=== PATIENT | male | born 1955 | race African-American/Black ===

== ENCOUNTER 2019-04-18 05:08 | Inpatient (IN) ==
[2019-04-18] MEDS: NOREPINEPHRINE 16 MG in SODIUM CHLORIDE 0.9% 234 ML IV PRN (07:30)
[2019-04-18] MEDS ORDERED: ACETAMINOPHEN 325 MG TABLET PO PRN (07:53)
[2019-04-18] MEDS ORDERED: ONDANSETRON 4 MG/2 ML VIAL IV PRN (07:53)
[2019-04-18] MEDS ORDERED: LACTULOSE 20 GM/30 ML UDCUP PO PRN ×2 (07:53→13:18)
[2019-04-18] MEDS ORDERED: MORPHINE 4 MG/1 ML VIAL IV PRN (07:53)
[2019-04-18] MEDS ORDERED: MEROPENEM 500 MG in SODIUM CHLORIDE 0.9% 100 ML IV SCH (09:00)
[2019-04-18] MEDS ORDERED: HEPARIN/NACL 0.9% 2 UNITS/ML 500 ML IV ONE (09:13)
[2019-04-18] MEDS ORDERED: LEVOFLOXACIN INJ 750 MG in PREMIX 1 EACH IV SCH ×2 (10:00→12:00)
[2019-04-18 10:48] LABS: Basophils % 0.2 % (0.0-0.8); Eosinophils # 0.1 10*3/uL (0.0-0.87); Eosinophils % 0.6 % (0.00-10.9); Hematocrit 37.2 VOL% (42.0-52.0); Hemoglobin 11.4 GM/DL (14.0-18.0); Immature Granulocytes % 0.4 %; Immature Granulocytes Absolute 0.05 #; Lymphocytes # 1.4 10*3/uL (1.4-4.0); Lymphocytes % 11.4 % (21.2-54.2); Mean Corpuscular HGB Conc 30.6 GM/DL (32-36); Mean Corpuscular Volume 89.6 FL (87-102); Mean Platelet Volume 9.3 FL (9.6-12.0); Monocytes % 11.9 % (1.7-12.7); Neutrophils % 75.5 % (38.7-73.9); Platelet Count 327 T/CUMM (130-400); Red Blood Count 4.15 MC/CUMM (3.8-5.5); Red Cell Distribution Width 12.9 % (9.3-17.3); White Blood Count 12.2 T/CUMM (4-12)
[2019-04-18 10:52] LABS: ABG Base Excess -6.4 MMOL/L (-2.5-2.5); ABG HCO3 19.2 MMOL/L (20-26); ABG Oxygen Saturation 96.1 % (95-100); ABG PCO2 54.7 MM HG (35-48); ABG PH 7.215 (7.35-7.45); ABG PO2 90.3 MM HG (80-95); ABG TCO2 20.2 MMOL/L (23-27); Allen Test Positive
[2019-04-18 11:08] LABS: Alanine Aminotransferase 23 U/L (16-61); Albumin 2.8 G/DL (3.4-5.0); Alkaline Phosphatase 121 U/L (45-117); Aspartate Amino Transferase 14 U/L (0-37); Bilirubin,Total < 0.39 MG/DL (0.2-1.0); Blood Urea Nitrogen 39 MG/DL (7-18); Calcium 8.3 MG/DL (8.5-10.1); Estimated Glom Filtration Rate 27 ML/MIN; Glucose 200 MG/DL (74-106); Osmolality,Calculated 276.7 MOS/KG (273-304); Troponin I < 0.015 NG/ML (0.00-0.045)
[2019-04-18 12:51] LABS: Apearance,Urine CLOUDY (Clear); Bilirubin,Urine Negative (Negative); Blood, Urine Small mg/dL (Negative); Glucose,Urine (UA) Negative (Negative); Hyaline Casts,Urine 10 /LPF (0-3); Ketones,Urine Negative (Negative); Mucus,Urine Occasional /LPF (Occasional); Nitrite,Urine Negative (Negative); Protein,Urine Negative; RBC,Urine 10 /HPF (0-4); Squamous Epithelial Cell,Urine Occasional /HPF (0-10); Urine Specific Gravity 1.016 (1.001-1.035); Urine Urobilinogen < 2.0 EU/DL (0.2-1.0); WBC,Urine 2 /HPF (0-6)
[2019-04-18 12:52] LABS: Urine Color Yellow (Yellow)
[2019-04-18] MEDS ORDERED: DEXTROSE 10% 250 ML BAG IV PRN (13:32)
[2019-04-18] MEDS ORDERED: GLUCAGON 1 MG VIAL IM PRN (13:32)
[2019-04-18] MEDS: ALBUTEROL/IPRATROPIUM 3 ML NEB RESP TX SCH ×2 (14:35→19:29)
[2019-04-18] MEDS: DOCUSATE SODIUM 100 MG CAPSULE PO SCH ×2 (14:41→21:34)
[2019-04-18] MEDS: PANTOPRAZOLE 40 MG TABLET PO SCH (14:41)
[2019-04-18] MEDS: SODIUM CHLORIDE 0.9% 1,000 ML IV SCH ×2 (15:00→18:00)
[2019-04-18] MEDS: INSULIN GLARGINE 100 UNIT/ML SUBCUT SCH (15:00)
[2019-04-18] MEDS: methylPREDNISolone SOD SUC 40 MG/1 ML VIAL IV SCH (15:01)
[2019-04-18] MEDS: MEROPENEM 500 MG in SODIUM CHLORIDE 0.9% 100 ML IV SCH ×2 (15:01→23:57)
[2019-04-18 15:34] LABS: ABG Base Excess -4.6 MMOL/L (-2.5-2.5); ABG HCO3 20.3 MMOL/L (20-26); ABG Oxygen Saturation 77.9 % (95-100); ABG PCO2 52.6 MM HG (35-48); ABG PH 7.252 (7.35-7.45); ABG PO2 46.4 MM HG (80-95); ABG TCO2 21.3 MMOL/L (23-27)
[2019-04-18] MEDS ORDERED: ENOXAPARIN 30 MG/0.3 ML SYRINGE SUBCUT SCH (21:00)
[2019-04-18] MEDS: INSULIN LISPRO 100 UNIT/ML SUBCUT SCH ×2 (21:30→21:33)
[2019-04-19] MEDS: ALBUTEROL/IPRATROPIUM 3 ML NEB RESP TX SCH ×4 (01:15→20:10)
[2019-04-19] MEDS: NOREPINEPHRINE 16 MG in SODIUM CHLORIDE 0.9% 234 ML IV PRN (02:30)
[2019-04-19] MEDS: methylPREDNISolone SOD SUC 40 MG/1 ML VIAL IV SCH ×2 (02:58→14:44)
[2019-04-19 04:21] LABS: Basophils % 0.1 % (0.0-0.8); Hematocrit 33.7 VOL% (42.0-52.0); Hemoglobin 10.2 GM/DL (14.0-18.0); Immature Granulocytes % 0.6 %; Immature Granulocytes Absolute 0.06 #; Lymphocytes # 0.6 10*3/uL (1.4-4.0); Lymphocytes % 5.7 % (21.2-54.2); Mean Corpuscular HGB Conc 30.3 GM/DL (32-36); Mean Corpuscular Volume 89.4 FL (87-102); Mean Platelet Volume 9.6 FL (9.6-12.0); Monocytes % 8.7 % (1.7-12.7); Neutrophils % 84.9 % (38.7-73.9); Platelet Count 314 T/CUMM (130-400); Red Blood Count 3.77 MC/CUMM (3.8-5.5); Red Cell Distribution Width 12.7 % (9.3-17.3); White Blood Count 10.7 T/CUMM (4-12)
[2019-04-19] MEDS: SODIUM CHLORIDE 0.9% 1,000 ML IV SCH ×3 (04:30→17:44)
[2019-04-19 04:52] LABS: Alanine Aminotransferase 19 U/L (16-61); Albumin 2.5 G/DL (3.4-5.0); Alkaline Phosphatase 106 U/L (45-117); Aspartate Amino Transferase 12 U/L (0-37); Bilirubin,Total < 0.39 MG/DL (0.2-1.0); Blood Urea Nitrogen 33 MG/DL (7-18); Calcium 8.2 MG/DL (8.5-10.1); Estimated Glom Filtration Rate 49 ML/MIN; Glucose 254 MG/DL (74-106); Osmolality,Calculated 288.8 MOS/KG (273-304); Total Protein 6.6 G/DL (6.4-8.3); Troponin I < 0.015 NG/ML (0.00-0.045)
[2019-04-19] MEDS ORDERED: SODIUM POLYSTYRENE SULFATE 15 GM/60 ML BOTTLE PO ONE (08:30)
[2019-04-19] MEDS: risperiDONE 1 MG TABLET PO SCH ×2 (08:35→21:07)
[2019-04-19] MEDS: DIVALPROEX 250 MG TABLET PO SCH ×2 (08:35→21:07)
[2019-04-19] MEDS: INSULIN LISPRO 100 UNIT/ML SUBCUT SCH ×5 (08:36→21:08)
[2019-04-19] MEDS: PANTOPRAZOLE 40 MG TABLET PO SCH (08:36)
[2019-04-19] MEDS: INSULIN GLARGINE 100 UNIT/ML SUBCUT SCH ×3 (08:36→21:08)
[2019-04-19] MEDS: DOCUSATE SODIUM 100 MG CAPSULE PO SCH ×2 (08:36→21:08)
[2019-04-19 09:04] LABS: ABG Base Excess -3.2 MMOL/L (-2.5-2.5); ABG HCO3 21.7 MMOL/L (20-26); ABG Oxygen Saturation 96.3 % (95-100); ABG PCO2 47.7 MM HG (35-48); ABG PH 7.301 (7.35-7.45); ABG PO2 82.7 MM HG (80-95); ABG TCO2 21.4 MMOL/L (23-27); Allen Test Positive
[2019-04-19] MEDS: MEROPENEM 500 MG in SODIUM CHLORIDE 0.9% 100 ML IV SCH ×2 (10:49→17:37)
[2019-04-19] MEDS ORDERED: GLUCAGON 1 MG VIAL IM PRN (11:00)
[2019-04-19] MEDS ORDERED: DEXTROSE 10% 250 ML BAG IV PRN (11:02)
[2019-04-19] MEDS: METOPROLOL TARTRATE 50 MG TABLET PO SCH ×2 (11:04→21:08)
[2019-04-19] MEDS ORDERED: DOCUSATE SODIUM 100 MG CAPSULE PO SCH (13:25)
[2019-04-19] MEDS: GABAPENTIN 400 MG CAPSULE PO SCH ×2 (14:43→21:07)
[2019-04-19] MEDS: ASPIRIN CHEW 81 MG TABLET PO SCH (14:43)
[2019-04-19] MEDS: CLOPIDOGREL 75 MG TABLET PO SCH (14:44)
[2019-04-19] MEDS ORDERED: ENOXAPARIN 40 MG/0.4 ML SYRINGE SUBCUT SCH (21:00)
[2019-04-19] MEDS: ENOXAPARIN 30 MG/0.3 ML SYRINGE SUBCUT SCH (21:08)
[2019-04-20] MEDS: methylPREDNISolone SOD SUC 40 MG/1 ML VIAL IV SCH ×2 (01:15→14:11)
[2019-04-20] MEDS: MEROPENEM 500 MG in SODIUM CHLORIDE 0.9% 100 ML IV SCH ×2 (01:15→10:04)
[2019-04-20] MEDS: SODIUM CHLORIDE 0.9% 1,000 ML IV SCH ×3 (01:15→20:10)
[2019-04-20] MEDS: ALBUTEROL/IPRATROPIUM 3 ML NEB RESP TX SCH ×4 (02:07→19:15)
[2019-04-20 06:15] LABS: Basophils % 0.1 % (0.0-0.8); Hematocrit 30.5 VOL% (42.0-52.0); Hemoglobin 9.2 GM/DL (14.0-18.0); Immature Granulocytes Absolute 0.11 #; Lymphocytes % 8.8 % (21.2-54.2); Mean Corpuscular HGB Conc 30.2 GM/DL (32-36); Mean Corpuscular Volume 89.4 FL (87-102); Mean Platelet Volume 9.7 FL (9.6-12.0); Monocytes % 9.7 % (1.7-12.7); Neutrophils % 80.4 % (38.7-73.9); Platelet Count 315 T/CUMM (130-400); Red Blood Count 3.41 MC/CUMM (3.8-5.5); White Blood Count 11.3 T/CUMM (4-12)
[2019-04-20 06:16] LABS: Calcium 8.5 MG/DL (8.5-10.1); Osmolality,Calculated 286.3 MOS/KG (273-304)
[2019-04-20] MEDS: INSULIN LISPRO 100 UNIT/ML SUBCUT SCH ×7 (07:58→21:01)
[2019-04-20] MEDS: PANTOPRAZOLE 40 MG TABLET PO SCH (08:57)
[2019-04-20] MEDS: DOCUSATE SODIUM 100 MG CAPSULE PO SCH ×2 (08:58→20:10)
[2019-04-20] MEDS: ASPIRIN CHEW 81 MG TABLET PO SCH (08:58)
[2019-04-20] MEDS: METOPROLOL TARTRATE 50 MG TABLET PO SCH ×2 (08:59→20:10)
[2019-04-20] MEDS: CLOPIDOGREL 75 MG TABLET PO SCH (09:00)
[2019-04-20] MEDS: GABAPENTIN 400 MG CAPSULE PO SCH ×2 (09:03→20:09)
[2019-04-20] MEDS: risperiDONE 1 MG TABLET PO SCH ×2 (09:03→20:10)
[2019-04-20] MEDS: DIVALPROEX 250 MG TABLET PO SCH ×2 (09:06→20:10)
[2019-04-20] MEDS: INSULIN GLARGINE 100 UNIT/ML SUBCUT SCH ×2 (09:08→21:01)
[2019-04-20 09:47] LABS: Free T4 (Free Thyroxine) 0.86 NG/DL (0.76-1.46)
[2019-04-20] MEDS: ENOXAPARIN 30 MG/0.3 ML SYRINGE SUBCUT SCH (20:11)
[2019-04-20] MEDS ORDERED: SIMVASTATIN 10 MG TABLET PO SCH (21:00)
[2019-04-21] MEDS: SODIUM CHLORIDE 0.9% 1,000 ML IV SCH ×2 (01:11→09:21)
[2019-04-21] MEDS: methylPREDNISolone SOD SUC 40 MG/1 ML VIAL IV SCH (01:12)
[2019-04-21 05:18] LABS: Basophils % 0.2 % (0.0-0.8); Eosinophils # 0.1 10*3/uL (0.0-0.87); Eosinophils % 0.5 % (0.00-10.9); Hematocrit 32.6 VOL% (42.0-52.0); Hemoglobin 9.9 GM/DL (14.0-18.0); Immature Granulocytes % 2.3 %; Immature Granulocytes Absolute 0.24 #; Lymphocytes # 1.2 10*3/uL (1.4-4.0); Lymphocytes % 11.2 % (21.2-54.2); Mean Corpuscular HGB Conc 30.4 GM/DL (32-36); Mean Corpuscular Volume 88.3 FL (87-102); Mean Platelet Volume 9.4 FL (9.6-12.0); Monocytes % 5.3 % (1.7-12.7); Neutrophils % 80.5 % (38.7-73.9); Platelet Count 354 T/CUMM (130-400); Red Blood Count 3.69 MC/CUMM (3.8-5.5); White Blood Count 10.6 T/CUMM (4-12)
[2019-04-21 05:36] LABS: Calcium 8.3 MG/DL (8.5-10.1); Osmolality,Calculated 289.8 MOS/KG (273-304)
[2019-04-21] MEDS: ALBUTEROL/IPRATROPIUM 3 ML NEB RESP TX SCH ×3 (07:35→12:02)
[2019-04-21] MEDS: PANTOPRAZOLE 40 MG TABLET PO SCH (08:39)
[2019-04-21] MEDS: DOCUSATE SODIUM 100 MG CAPSULE PO SCH (08:40)
[2019-04-21] MEDS: INSULIN GLARGINE 100 UNIT/ML SUBCUT SCH (08:40)
[2019-04-21] MEDS: GABAPENTIN 400 MG CAPSULE PO SCH (08:40)
[2019-04-21] MEDS: METOPROLOL TARTRATE 50 MG TABLET PO SCH (08:40)
[2019-04-21] MEDS: risperiDONE 1 MG TABLET PO SCH (08:40)
[2019-04-21] MEDS: DIVALPROEX 250 MG TABLET PO SCH (08:40)
[2019-04-21] MEDS: ASPIRIN CHEW 81 MG TABLET PO SCH (08:40)
[2019-04-21] MEDS: CLOPIDOGREL 75 MG TABLET PO SCH (08:40)
[2019-04-21] MEDS: INSULIN LISPRO 100 UNIT/ML SUBCUT SCH ×2 (09:20)
[2019-04-21 12:54] VITALS: BP 143/76
== END 2019-04-21 14:38 | disposition home or self-care (01) | DRG 189 ==
LOC: N.ICU 06:42 → SUATTDRO 06:42 → N.5E 04-19 13:19
PROVIDERS: ADMIT Internal Medicine; ATTEND Internal Medicine

== ENCOUNTER 2019-05-06 14:04 | Inpatient (IN) ==
[2019-05-06] MEDS ORDERED: ALBUTEROL/IPRATROPIUM 3 ML NEB RESP TX STA (14:36)
[2019-05-06 15:11] LABS: Basophils % 0.5 % (0.0-0.8); Eosinophils # 0.1 10*3/uL (0.0-0.87); Eosinophils % 2.8 % (0.00-10.9); Hemoglobin 15.2 GM/DL (14.0-18.0); Immature Granulocytes % 0.5 %; Immature Granulocytes Absolute 0.02 #; Lymphocytes # 0.7 10*3/uL (1.4-4.0); Lymphocytes % 16.9 % (21.2-54.2); Mean Corpuscular Volume 87.5 FL (87-102); Mean Platelet Volume 8.9 FL (9.6-12.0); Monocytes % 7.2 % (1.7-12.7); Neutrophils % 72.1 % (38.7-73.9); Platelet Count 253 T/CUMM (130-400); Red Cell Distribution Width 13.4 % (9.3-17.3); White Blood Count 4.3 T/CUMM (4-12)
[2019-05-06 15:18] LABS: PT Patient Result 10.5 SECS (9.6-12.2); Partial Thromboplastin Time 26.8 SECS (20.8-36.0)
[2019-05-06 15:24] LABS: Apearance,Urine CLEAR (Clear); Bilirubin,Urine Negative (Negative); Blood, Urine Negative (Negative); Glucose,Urine (UA) Negative (Negative); Hyaline Casts,Urine 17 /LPF (0-3); Ketones,Urine Negative (Negative); Mucus,Urine Occasional /LPF (Occasional); Nitrite,Urine Negative (Negative); Protein,Urine Negative; Squamous Epithelial Cell,Urine Occasional /HPF (0-10); Urine Color Yellow (Yellow); Urine Specific Gravity 1.009 (1.001-1.035); Urine Urobilinogen < 2.0 EU/DL (0.2-1.0)
[2019-05-06 15:32] LABS: Barbiturates Screen,Urine Negative (Negative); Benzodiazepines Screen,Urine Negative (Negative); Cannabinoid Screen,Urine Negative (Negative); Opiate Screen,Urine Negative (Negative); Phencyclidine Screen,Urine Negative (Negative)
[2019-05-06 15:34] LABS: Alanine Aminotransferase 16 U/L (16-61); Albumin 2.8 G/DL (3.4-5.0); Alkaline Phosphatase 112 U/L (45-117); Aspartate Amino Transferase 8 U/L (0-37); Bilirubin,Total < 0.39 MG/DL (0.2-1.0); Blood Urea Nitrogen 31 MG/DL (7-18); Calcium 8.8 MG/DL (8.5-10.1); Estimated Glom Filtration Rate 61 ML/MIN; Glucose 75 MG/DL (74-106); Osmolality,Calculated 273.2 MOS/KG (273-304); Thyroid Stimulating Hormone 0.827 uIU/ml (0.358-3.74); Total Protein 7.1 G/DL (6.4-8.3); Troponin I < 0.015 NG/ML (0.00-0.045)
[2019-05-06 15:50] LABS: ABG Base Excess 3.8 MMOL/L (-2.5-2.5); ABG HCO3 27.8 MMOL/L (20-26); ABG Oxygen Saturation 96.7 % (95-100); ABG PCO2 54.8 MM HG (35-48); ABG PH 7.354 (7.35-7.45); ABG PO2 88.4 MM HG (80-95); ABG TCO2 27.7 MMOL/L (23-27)
[2019-05-06] MEDS ORDERED: ONDANSETRON 4 MG/2 ML VIAL IV PRN (17:10)
[2019-05-06] MEDS ORDERED: DOCUSATE SODIUM 100 MG CAPSULE PO PRN (17:10)
[2019-05-06] MEDS ORDERED: LACTULOSE 20 GM/30 ML UDCUP PO PRN (17:10)
[2019-05-06] MEDS ORDERED: GLUCAGON 1 MG VIAL IM PRN (17:16)
[2019-05-06] MEDS ORDERED: DEXTROSE 10% 250 ML BAG IV PRN (17:16)
[2019-05-06] MEDS ORDERED: SODIUM CHLORIDE 0.9% 1,000 ML IV SCH (17:30)
[2019-05-06] MEDS ORDERED: DEXTROSE 10% 250 ML BAG IV ONE (19:11)
[2019-05-06] MEDS ORDERED: DEXTROSE 50% 25 GM/50 ML SYRINGE IV ONE ×3 (19:14→19:30)
[2019-05-06 19:25] LABS: ABG HCO3 27.1 MMOL/L (20-26); ABG Oxygen Saturation 97.3 % (95-100); ABG PCO2 58.2 MM HG (35-48); ABG PH 7.325 (7.35-7.45); ABG PO2 98.3 MM HG (80-95); ABG TCO2 27.6 MMOL/L (23-27)
[2019-05-06] MEDS: ALBUTEROL/IPRATROPIUM 3 ML NEB RESP TX SCH (20:15)
[2019-05-06] MEDS: INSULIN LISPRO 100 UNIT/ML SUBCUT SCH (20:32)
[2019-05-06] MEDS ORDERED: METOPROLOL TARTRATE 50 MG TABLET PO SCH (21:00)
[2019-05-06] MEDS ORDERED: PRAVASTATIN 20 MG TABLET PO SCH (21:00)
[2019-05-06] MEDS: ENOXAPARIN 40 MG/0.4 ML SYRINGE SUBCUT SCH (21:28)
[2019-05-06] MEDS: DEXTROSE 5% NACL 0.9% 1,000 ML IV SCH (22:02)
[2019-05-07] MEDS: ALBUTEROL/IPRATROPIUM 3 ML NEB RESP TX SCH ×4 (00:50→20:25)
[2019-05-07] MEDS ORDERED: SODIUM CHLORIDE 0.9% 500 ML IV ONE (04:36)
[2019-05-07 06:19] LABS: Basophils % 0.5 % (0.0-0.8); Eosinophils # 0.2 10*3/uL (0.0-0.87); Eosinophils % 2.4 % (0.00-10.9); Hematocrit 33.2 VOL% (42.0-52.0); Hemoglobin 10.1 GM/DL (14.0-18.0); Immature Granulocytes % 0.3 %; Immature Granulocytes Absolute 0.02 #; Lymphocytes % 14.5 % (21.2-54.2); Mean Corpuscular HGB Conc 30.4 GM/DL (32-36); Mean Corpuscular Volume 89.2 FL (87-102); Mean Platelet Volume 9.1 FL (9.6-12.0); Monocytes % 10.1 % (1.7-12.7); Neutrophils % 72.2 % (38.7-73.9); Platelet Count 355 T/CUMM (130-400); Red Blood Count 3.72 MC/CUMM (3.8-5.5); Red Cell Distribution Width 13.3 % (9.3-17.3); White Blood Count 6.6 T/CUMM (4-12)
[2019-05-07 06:45] LABS: Albumin 2.5 G/DL (3.4-5.0); Bilirubin,Total 0.4 MG/DL (0.2-1.0); Calcium 8.4 MG/DL (8.5-10.1); Osmolality,Calculated 274.2 MOS/KG (273-304); Total Protein 6.3 G/DL (6.4-8.3)
[2019-05-07] MEDS: INSULIN LISPRO 100 UNIT/ML SUBCUT SCH ×4 (07:11→20:42)
[2019-05-07] MEDS: DEXTROSE 5% NACL 0.9% 1,000 ML IV SCH ×2 (07:35→18:31)
[2019-05-07 07:36] LABS: ABG Base Excess 3.4 MMOL/L (-2.5-2.5); ABG HCO3 27.4 MMOL/L (20-26); ABG PH 7.359 (7.35-7.45); ABG TCO2 27.3 MMOL/L (23-27); Allen Test Positive; Pt O2 Delivery Device BIPAP
[2019-05-07] MEDS ORDERED: GABAPENTIN 400 MG CAPSULE PO SCH (09:00)
[2019-05-07] MEDS: risperiDONE 1 MG TABLET PO SCH (11:55)
[2019-05-07] MEDS: SERTRALINE 50 MG TABLET PO SCH (12:15)
[2019-05-07] MEDS: ASPIRIN CHEW 81 MG TABLET PO SCH (12:16)
[2019-05-07] MEDS: CLOPIDOGREL 75 MG TABLET PO SCH (12:16)
[2019-05-07] MEDS: TOLTERODINE LA 4 MG CAPSULE PO SCH (12:16)
[2019-05-07] MEDS: PANTOPRAZOLE 40 MG TABLET PO SCH (12:16)
[2019-05-07] MEDS: DIVALPROEX 250 MG TABLET PO SCH ×2 (12:16→17:31)
[2019-05-07] MEDS: LACTULOSE 20 GM/30 ML UDCUP PO SCH ×3 (13:35→20:42)
[2019-05-07 15:36] LABS: ABG Base Excess 3.8 MMOL/L (-2.5-2.5); ABG HCO3 27.7 MMOL/L (20-26); ABG Oxygen Saturation 90.4 % (95-100); ABG PCO2 53.7 MM HG (35-48); ABG PH 7.359 (7.35-7.45); ABG PO2 58.9 MM HG (80-95); ABG TCO2 27.7 MMOL/L (23-27); Allen Test Positive; Pt O2 Delivery Device Other
[2019-05-07] MEDS ORDERED: GABAPENTIN 600 MG TABLET PO SCH (18:00)
[2019-05-07] MEDS: ENOXAPARIN 40 MG/0.4 ML SYRINGE SUBCUT SCH (20:41)
[2019-05-08] MEDS: ALBUTEROL/IPRATROPIUM 3 ML NEB RESP TX SCH ×4 (00:15→20:28)
[2019-05-08] MEDS: LACTULOSE 20 GM/30 ML UDCUP PO SCH ×4 (02:33→12:17)
[2019-05-08] MEDS: DEXTROSE 5% NACL 0.9% 1,000 ML IV SCH ×2 (04:07→15:36)
[2019-05-08 06:15] LABS: Basophils % 0.5 % (0.0-0.8); Eosinophils # 0.2 10*3/uL (0.0-0.87); Eosinophils % 2.1 % (0.00-10.9); Hematocrit 35.7 VOL% (42.0-52.0); Hemoglobin 10.6 GM/DL (14.0-18.0); Immature Granulocytes % 0.2 %; Immature Granulocytes Absolute 0.02 #; Lymphocytes # 0.9 10*3/uL (1.4-4.0); Lymphocytes % 10.6 % (21.2-54.2); Mean Corpuscular HGB Conc 29.7 GM/DL (32-36); Mean Corpuscular Volume 90.4 FL (87-102); Mean Platelet Volume 9.2 FL (9.6-12.0); Monocytes % 8.1 % (1.7-12.7); Neutrophils % 78.5 % (38.7-73.9); Platelet Count 373 T/CUMM (130-400); Red Blood Count 3.95 MC/CUMM (3.8-5.5); Red Cell Distribution Width 13.2 % (9.3-17.3); White Blood Count 8.2 T/CUMM (4-12)
[2019-05-08 06:32] LABS: Albumin 2.7 G/DL (3.4-5.0); Bilirubin,Total 0.7 MG/DL (0.2-1.0); Osmolality,Calculated 280.7 MOS/KG (273-304); Total Protein 7.2 G/DL (6.4-8.3)
[2019-05-08] MEDS: INSULIN LISPRO 100 UNIT/ML SUBCUT SCH ×4 (07:45→21:36)
[2019-05-08 11:09] LABS: ABG Base Excess 1.7 MMOL/L (-2.5-2.5); ABG HCO3 25.7 MMOL/L (20-26); ABG Oxygen Saturation 87.2 % (95-100); ABG PCO2 47.8 MM HG (35-48); ABG PH 7.368 (7.35-7.45); ABG PO2 54.1 MM HG (80-95); Allen Test Positive; Pt O2 Delivery Device Other
[2019-05-08] MEDS: ASPIRIN CHEW 81 MG TABLET PO SCH (13:39)
[2019-05-08] MEDS: PANTOPRAZOLE 40 MG TABLET PO SCH (13:40)
[2019-05-08] MEDS: SERTRALINE 50 MG TABLET PO SCH (13:40)
[2019-05-08] MEDS: CLOPIDOGREL 75 MG TABLET PO SCH (13:40)
[2019-05-08] MEDS: DIVALPROEX 250 MG TABLET PO SCH ×2 (13:40→17:09)
[2019-05-08] MEDS: TOLTERODINE LA 4 MG CAPSULE PO SCH (13:40)
[2019-05-08] MEDS: OXYMETAZOLINE 0.05% NASAL SPRAY 15 ML BOTTLE BOTH NARES PRN (15:23)
[2019-05-08] MEDS ORDERED: LINACLOTIDE 145 MCG CAPSULE PO SCH (15:25)
[2019-05-08] MEDS: SODIUM CHLOR 0.9% KCL 20 MEQ 20 MEQ/1,000 ML BAG IV SCH (15:29)
[2019-05-08] MEDS: METOCLOPRAMIDE 10 MG/2 ML VIAL IV SCH (17:09)
[2019-05-08] MEDS: LINACLOTIDE 145 MCG CAPSULE PO SCH (17:13)
[2019-05-08] MEDS: ENOXAPARIN 40 MG/0.4 ML SYRINGE SUBCUT SCH (21:33)
[2019-05-09] MEDS: ALBUTEROL/IPRATROPIUM 3 ML NEB RESP TX SCH ×4 (00:06→20:20)
[2019-05-09] MEDS: METOCLOPRAMIDE 10 MG/2 ML VIAL IV SCH ×4 (01:00→17:12)
[2019-05-09] MEDS: SODIUM CHLOR 0.9% KCL 20 MEQ 20 MEQ/1,000 ML BAG IV SCH ×2 (04:59→21:10)
[2019-05-09 05:30] LABS: Basophils % 0.4 % (0.0-0.8); Eosinophils # 0.3 10*3/uL (0.0-0.87); Eosinophils % 3.2 % (0.00-10.9); Hematocrit 33.5 VOL% (42.0-52.0); Immature Granulocytes % 0.2 %; Immature Granulocytes Absolute 0.02 #; Lymphocytes % 11.9 % (21.2-54.2); Mean Corpuscular HGB Conc 29.9 GM/DL (32-36); Mean Corpuscular Volume 89.8 FL (87-102); Mean Platelet Volume 9.1 FL (9.6-12.0); Monocytes % 8.3 % (1.7-12.7); Platelet Count 302 T/CUMM (130-400); Red Blood Count 3.73 MC/CUMM (3.8-5.5); Red Cell Distribution Width 13.2 % (9.3-17.3); White Blood Count 8.4 T/CUMM (4-12)
[2019-05-09 05:47] LABS: Albumin 2.7 G/DL (3.4-5.0); Bilirubin,Total 1.2 MG/DL (0.2-1.0); Calcium 8.7 MG/DL (8.5-10.1); Osmolality,Calculated 283.3 MOS/KG (273-304); Total Protein 6.6 G/DL (6.4-8.3)
[2019-05-09] MEDS ORDERED: LINACLOTIDE 145 MCG CAPSULE PO SCH (07:30)
[2019-05-09] MEDS: INSULIN LISPRO 100 UNIT/ML SUBCUT SCH ×4 (08:06→21:09)
[2019-05-09] MEDS: ASPIRIN CHEW 81 MG TABLET PO SCH (08:06)
[2019-05-09] MEDS: DIVALPROEX 250 MG TABLET PO SCH ×2 (08:06→17:12)
[2019-05-09] MEDS: CLOPIDOGREL 75 MG TABLET PO SCH (08:06)
[2019-05-09] MEDS: TOLTERODINE LA 4 MG CAPSULE PO SCH (08:06)
[2019-05-09] MEDS: PANTOPRAZOLE 40 MG TABLET PO SCH (08:07)
[2019-05-09] MEDS: SERTRALINE 50 MG TABLET PO SCH (08:07)
[2019-05-09] MEDS: LINACLOTIDE 145 MCG CAPSULE PO SCH (08:59)
[2019-05-09 12:10] LABS: Amorphous Crystals,Urine Few /HPF (Few); Apearance,Urine CLOUDY (Clear); Bilirubin,Urine Negative (Negative); Blood, Urine Negative (Negative); Glucose,Urine (UA) Negative (Negative); Ketones,Urine Negative (Negative); Mucus,Urine Occasional /LPF (Occasional); Nitrite,Urine Negative (Negative); Protein,Urine 30 MG/DL; RBC,Urine 5 /HPF (0-4); Triple Phosphate Crystal,Urine Occasional /HPF (Few); Urine Color Yellow (Yellow); Urine Specific Gravity 1.019 (1.001-1.035); Urine Urobilinogen < 2.0 EU/DL (0.2-1.0); WBC,Urine 25 /HPF (0-6)
[2019-05-09] MEDS: cefTRIAXone 1,000 MG in SYRINGE 1 EACH IV SCH (15:38)
[2019-05-09] MEDS: ENOXAPARIN 40 MG/0.4 ML SYRINGE SUBCUT SCH (21:09)
[2019-05-09] MEDS: FUROSEMIDE 20 MG TABLET PO SCH (21:10)
[2019-05-10] MEDS: METOCLOPRAMIDE 10 MG/2 ML VIAL IV SCH ×4 (00:30→17:17)
[2019-05-10] MEDS: OXYMETAZOLINE 0.05% NASAL SPRAY 15 ML BOTTLE BOTH NARES PRN (00:40)
[2019-05-10] MEDS ORDERED: COCAINE SUBSTITUTE 30 ML BOTTLE TOP ONE ×2 (00:58→01:00)
[2019-05-10] MEDS: ALBUTEROL/IPRATROPIUM 3 ML NEB RESP TX SCH ×4 (01:03→19:54)
[2019-05-10 04:58] LABS: Basophils % 0.2 % (0.0-0.8); Eosinophils # 0.1 10*3/uL (0.0-0.87); Hematocrit 31.9 VOL% (42.0-52.0); Hemoglobin 9.5 GM/DL (14.0-18.0); Immature Granulocytes % 0.3 %; Immature Granulocytes Absolute 0.04 #; Lymphocytes # 0.8 10*3/uL (1.4-4.0); Lymphocytes % 6.4 % (21.2-54.2); Mean Corpuscular HGB Conc 29.8 GM/DL (32-36); Mean Corpuscular Volume 90.4 FL (87-102); Neutrophils % 84.1 % (38.7-73.9); Platelet Count 294 T/CUMM (130-400); Red Blood Count 3.53 MC/CUMM (3.8-5.5); Red Cell Distribution Width 13.1 % (9.3-17.3); White Blood Count 12.1 T/CUMM (4-12)
[2019-05-10 05:19] LABS: Calcium 8.6 MG/DL (8.5-10.1); Osmolality,Calculated 283.5 MOS/KG (273-304)
[2019-05-10] MEDS: LINACLOTIDE 145 MCG CAPSULE PO SCH (08:22)
[2019-05-10] MEDS: ASPIRIN CHEW 81 MG TABLET PO SCH (08:24)
[2019-05-10] MEDS: CLOPIDOGREL 75 MG TABLET PO SCH (08:24)
[2019-05-10] MEDS: PANTOPRAZOLE 40 MG TABLET PO SCH (08:24)
[2019-05-10] MEDS: TOLTERODINE LA 4 MG CAPSULE PO SCH (08:24)
[2019-05-10] MEDS: CHLORTHALIDONE 25 MG TABLET PO SCH (08:24)
[2019-05-10] MEDS: DIVALPROEX 250 MG TABLET PO SCH ×2 (08:24→17:16)
[2019-05-10] MEDS: FUROSEMIDE 20 MG TABLET PO SCH ×2 (08:24→22:30)
[2019-05-10] MEDS: INSULIN LISPRO 100 UNIT/ML SUBCUT SCH ×4 (08:24→22:30)
[2019-05-10] MEDS: SERTRALINE 50 MG TABLET PO SCH (08:34)
[2019-05-10] MEDS: POTASSIUM CHLORIDE 20 MEQ TABLET PO PRN ×3 (11:44→15:58)
[2019-05-10] MEDS: SODIUM CHLOR 0.9% KCL 20 MEQ 20 MEQ/1,000 ML BAG IV SCH (11:54)
[2019-05-10] MEDS: cefTRIAXone 1,000 MG in SYRINGE 1 EACH IV SCH (15:59)
[2019-05-10] MEDS ORDERED: SIMETHICONE CHEW 125 MG TABLET PO PRN (17:26)
[2019-05-10] MEDS: ENOXAPARIN 40 MG/0.4 ML SYRINGE SUBCUT SCH (22:30)
[2019-05-11] MEDS: METOCLOPRAMIDE 10 MG/2 ML VIAL IV SCH ×5 (01:09→23:19)
[2019-05-11] MEDS ORDERED: INSULIN GLARGINE 100 UNIT/ML SUBCUT SCH (01:30)
[2019-05-11] MEDS: CLOZAPINE PO SCH ×2 (03:45→10:40)
[2019-05-11] MEDS: ALBUTEROL/IPRATROPIUM 3 ML NEB RESP TX SCH ×4 (04:48→19:21)
[2019-05-11 05:12] LABS: Basophils % 0.2 % (0.0-0.8); Eosinophils # 0.4 10*3/uL (0.0-0.87); Eosinophils % 3.7 % (0.00-10.9); Hematocrit 30.5 VOL% (42.0-52.0); Hemoglobin 9.5 GM/DL (14.0-18.0); Immature Granulocytes % 0.3 %; Immature Granulocytes Absolute 0.03 #; Lymphocytes # 0.9 10*3/uL (1.4-4.0); Lymphocytes % 9.7 % (21.2-54.2); Mean Corpuscular HGB Conc 31.1 GM/DL (32-36); Mean Corpuscular Volume 88.2 FL (87-102); Mean Platelet Volume 9.5 FL (9.6-12.0); Monocytes % 8.1 % (1.7-12.7); Platelet Count 289 T/CUMM (130-400); Red Blood Count 3.46 MC/CUMM (3.8-5.5); Red Cell Distribution Width 13.1 % (9.3-17.3); White Blood Count 9.4 T/CUMM (4-12)
[2019-05-11 05:30] LABS: Calcium 8.9 MG/DL (8.5-10.1); Osmolality,Calculated 281.4 MOS/KG (273-304)
[2019-05-11] MEDS: POTASSIUM CHLORIDE 20 MEQ TABLET PO PRN ×2 (06:51→13:07)
[2019-05-11] MEDS ORDERED: POTASSIUM CHLORIDE 20 MEQ TABLET PO ONE (07:35)
[2019-05-11] MEDS: INSULIN LISPRO 100 UNIT/ML SUBCUT SCH ×4 (10:36→23:21)
[2019-05-11] MEDS: DIVALPROEX 250 MG TABLET PO SCH ×2 (10:38→16:08)
[2019-05-11] MEDS: risperiDONE 1 MG TABLET PO SCH ×2 (10:38→16:08)
[2019-05-11] MEDS: TOLTERODINE LA 4 MG CAPSULE PO SCH (10:38)
[2019-05-11] MEDS: predniSONE 20 MG TABLET PO SCH (10:39)
[2019-05-11] MEDS: PANTOPRAZOLE 40 MG TABLET PO SCH (10:39)
[2019-05-11] MEDS: SERTRALINE 50 MG TABLET PO SCH (10:39)
[2019-05-11] MEDS: ASPIRIN CHEW 81 MG TABLET PO SCH (10:39)
[2019-05-11] MEDS: CLOPIDOGREL 75 MG TABLET PO SCH (10:39)
[2019-05-11] MEDS: THEOPHYLLINE ER (24 HR) 400 MG CAPSULE PO SCH (10:39)
[2019-05-11] MEDS: CHLORTHALIDONE 25 MG TABLET PO SCH (10:40)
[2019-05-11] MEDS: FUROSEMIDE 20 MG TABLET PO SCH ×2 (10:40→16:15)
[2019-05-11] MEDS: LINACLOTIDE 145 MCG CAPSULE PO SCH (12:57)
[2019-05-11] MEDS: cefTRIAXone 1,000 MG in SYRINGE 1 EACH IV SCH (16:08)
[2019-05-11] MEDS: INSULIN GLARGINE 100 UNIT/ML SUBCUT SCH (18:05)
[2019-05-11] MEDS: ENOXAPARIN 40 MG/0.4 ML SYRINGE SUBCUT SCH (23:22)
[2019-05-12] MEDS: ALBUTEROL/IPRATROPIUM 3 ML NEB RESP TX SCH ×4 (00:23→19:08)
[2019-05-12 04:34] LABS: Basophils % 0.2 % (0.0-0.8); Eosinophils # 0.4 10*3/uL (0.0-0.87); Eosinophils % 4.2 % (0.00-10.9); Hematocrit 32.1 VOL% (42.0-52.0); Hemoglobin 9.7 GM/DL (14.0-18.0); Immature Granulocytes % 0.4 %; Immature Granulocytes Absolute 0.03 #; Lymphocytes # 1.1 10*3/uL (1.4-4.0); Lymphocytes % 13.1 % (21.2-54.2); Mean Corpuscular HGB Conc 30.2 GM/DL (32-36); Mean Corpuscular Volume 89.2 FL (87-102); Mean Platelet Volume 9.4 FL (9.6-12.0); Monocytes % 9.5 % (1.7-12.7); Neutrophils % 72.6 % (38.7-73.9); Platelet Count 297 T/CUMM (130-400); Red Cell Distribution Width 12.8 % (9.3-17.3); White Blood Count 8.4 T/CUMM (4-12)
[2019-05-12 05:04] LABS: Osmolality,Calculated 279.7 MOS/KG (273-304)
[2019-05-12] MEDS: METOCLOPRAMIDE 10 MG/2 ML VIAL IV SCH ×4 (05:33→23:56)
[2019-05-12] MEDS: POTASSIUM CHLORIDE 20 MEQ TABLET PO PRN ×2 (07:17→10:38)
[2019-05-12] MEDS: INSULIN GLARGINE 100 UNIT/ML SUBCUT SCH ×2 (10:35→17:35)
[2019-05-12] MEDS: INSULIN LISPRO 100 UNIT/ML SUBCUT SCH ×4 (10:36→21:16)
[2019-05-12] MEDS: LINACLOTIDE 145 MCG CAPSULE PO SCH (10:37)
[2019-05-12] MEDS: DIVALPROEX 250 MG TABLET PO SCH ×2 (10:38→17:35)
[2019-05-12] MEDS: THEOPHYLLINE ER (24 HR) 400 MG CAPSULE PO SCH (10:38)
[2019-05-12] MEDS: SERTRALINE 50 MG TABLET PO SCH (10:38)
[2019-05-12] MEDS: PANTOPRAZOLE 40 MG TABLET PO SCH (10:39)
[2019-05-12] MEDS: CLOPIDOGREL 75 MG TABLET PO SCH (10:39)
[2019-05-12] MEDS: CHLORTHALIDONE 25 MG TABLET PO SCH (10:39)
[2019-05-12] MEDS: predniSONE 20 MG TABLET PO SCH (10:40)
[2019-05-12] MEDS: risperiDONE 1 MG TABLET PO SCH ×2 (10:40→17:39)
[2019-05-12] MEDS: FUROSEMIDE 20 MG TABLET PO SCH ×2 (10:40→17:17)
[2019-05-12] MEDS: ASPIRIN CHEW 81 MG TABLET PO SCH (10:46)
[2019-05-12] MEDS: POTASSIUM CHLORIDE 20 MEQ TABLET PO SCH ×2 (14:02→17:17)
[2019-05-12] MEDS: cefTRIAXone 1,000 MG in SYRINGE 1 EACH IV SCH (17:17)
[2019-05-12] MEDS: METOPROLOL TARTRATE 25 MG TABLET PO SCH ×2 (17:21→21:16)
[2019-05-12] MEDS: ENOXAPARIN 40 MG/0.4 ML SYRINGE SUBCUT SCH (21:16)
[2019-05-13] MEDS: ALBUTEROL/IPRATROPIUM 3 ML NEB RESP TX SCH ×4 (00:12→19:35)
[2019-05-13 04:19] LABS: Basophils % 0.4 % (0.0-0.8); Eosinophils # 0.5 10*3/uL (0.0-0.87); Eosinophils % 6.3 % (0.00-10.9); Hematocrit 30.8 VOL% (42.0-52.0); Hemoglobin 9.5 GM/DL (14.0-18.0); Immature Granulocytes % 0.2 %; Immature Granulocytes Absolute 0.02 #; Lymphocytes # 1.2 10*3/uL (1.4-4.0); Mean Corpuscular HGB Conc 30.8 GM/DL (32-36); Mean Corpuscular Volume 88.3 FL (87-102); Mean Platelet Volume 9.5 FL (9.6-12.0); Monocytes % 8.2 % (1.7-12.7); Neutrophils % 69.9 % (38.7-73.9); Platelet Count 317 T/CUMM (130-400); Red Blood Count 3.49 MC/CUMM (3.8-5.5); Red Cell Distribution Width 13.1 % (9.3-17.3); White Blood Count 8.2 T/CUMM (4-12)
[2019-05-13 04:42] LABS: Calcium 9.2 MG/DL (8.5-10.1); Osmolality,Calculated 283.1 MOS/KG (273-304)
[2019-05-13] MEDS: METOCLOPRAMIDE 10 MG/2 ML VIAL IV SCH ×3 (06:20→17:05)
[2019-05-13] MEDS: INSULIN LISPRO 100 UNIT/ML SUBCUT SCH ×4 (09:07→21:12)
[2019-05-13] MEDS: INSULIN GLARGINE 100 UNIT/ML SUBCUT SCH ×2 (09:14→17:04)
[2019-05-13] MEDS: predniSONE 20 MG TABLET PO SCH (09:16)
[2019-05-13] MEDS: CLOPIDOGREL 75 MG TABLET PO SCH (09:16)
[2019-05-13] MEDS: SERTRALINE 50 MG TABLET PO SCH (09:16)
[2019-05-13] MEDS: THEOPHYLLINE ER (24 HR) 400 MG CAPSULE PO SCH (09:16)
[2019-05-13] MEDS: PANTOPRAZOLE 40 MG TABLET PO SCH (09:17)
[2019-05-13] MEDS: LINACLOTIDE 145 MCG CAPSULE PO SCH (09:17)
[2019-05-13] MEDS: DIVALPROEX 250 MG TABLET PO SCH ×2 (09:17→17:04)
[2019-05-13] MEDS: FUROSEMIDE 20 MG TABLET PO SCH ×2 (09:17→17:04)
[2019-05-13] MEDS: POTASSIUM CHLORIDE 20 MEQ TABLET PO SCH ×2 (09:17→11:30)
[2019-05-13] MEDS: METOPROLOL TARTRATE 25 MG TABLET PO SCH ×2 (09:17→21:11)
[2019-05-13] MEDS: ASPIRIN CHEW 81 MG TABLET PO SCH (09:17)
[2019-05-13] MEDS: risperiDONE 1 MG TABLET PO SCH ×2 (09:17→17:04)
[2019-05-13] MEDS: CHLORTHALIDONE 25 MG TABLET PO SCH (09:18)
[2019-05-13] MEDS: cefTRIAXone 1,000 MG in SYRINGE 1 EACH IV SCH (17:05)
[2019-05-13] MEDS: ENOXAPARIN 40 MG/0.4 ML SYRINGE SUBCUT SCH (21:14)
[2019-05-14] MEDS: ALBUTEROL/IPRATROPIUM 3 ML NEB RESP TX SCH ×4 (00:20→19:07)
[2019-05-14] MEDS: METOCLOPRAMIDE 10 MG/2 ML VIAL IV SCH ×5 (00:39→23:51)
[2019-05-14 07:05] LABS: Basophils % 0.4 % (0.0-0.8); Eosinophils # 0.8 10*3/uL (0.0-0.87); Eosinophils % 10.4 % (0.00-10.9); Hematocrit 33.1 VOL% (42.0-52.0); Hemoglobin 9.8 GM/DL (14.0-18.0); Immature Granulocytes % 0.4 %; Immature Granulocytes Absolute 0.03 #; Lymphocytes # 1.3 10*3/uL (1.4-4.0); Lymphocytes % 17.5 % (21.2-54.2); Mean Corpuscular HGB Conc 29.6 GM/DL (32-36); Mean Corpuscular Volume 90.9 FL (87-102); Mean Platelet Volume 9.7 FL (9.6-12.0); Neutrophils % 61.3 % (38.7-73.9); Platelet Count 336 T/CUMM (130-400); Red Blood Count 3.64 MC/CUMM (3.8-5.5); White Blood Count 7.5 T/CUMM (4-12)
[2019-05-14 07:27] LABS: Osmolality,Calculated 282.1 MOS/KG (273-304)
[2019-05-14] MEDS ORDERED: BISACODYL 10 MG SUPP RECTAL ONE (07:28)
[2019-05-14] MEDS: INSULIN LISPRO 100 UNIT/ML SUBCUT SCH ×4 (07:43→21:15)
[2019-05-14 07:56] LABS: Eosinophils 9 % (0-10); Hypochromasia 1+; Lymphocytes 16 % (20-55); Platelet Estimate Adequate; Segmented Neutrophils 64 % (50-85); Total Cells Counted 100
[2019-05-14 07:57] LABS: Ovalocytes Slight
[2019-05-14] MEDS ORDERED: POTASSIUM CHLORIDE 20 MEQ TABLET PO SCH (09:00)
[2019-05-14] MEDS: INSULIN GLARGINE 100 UNIT/ML SUBCUT SCH ×2 (09:11→17:05)
[2019-05-14] MEDS: LINACLOTIDE 145 MCG CAPSULE PO SCH (09:11)
[2019-05-14] MEDS: POTASSIUM CHLORIDE 20 MEQ TABLET PO SCH ×3 (09:12→17:04)
[2019-05-14] MEDS: DIVALPROEX 250 MG TABLET PO SCH ×2 (09:12→17:04)
[2019-05-14] MEDS: risperiDONE 1 MG TABLET PO SCH ×2 (09:12→17:04)
[2019-05-14] MEDS: predniSONE 20 MG TABLET PO SCH (09:13)
[2019-05-14] MEDS: CLOPIDOGREL 75 MG TABLET PO SCH (09:13)
[2019-05-14] MEDS: THEOPHYLLINE ER (24 HR) 400 MG CAPSULE PO SCH (09:13)
[2019-05-14] MEDS: ASPIRIN CHEW 81 MG TABLET PO SCH (09:13)
[2019-05-14] MEDS: PANTOPRAZOLE 40 MG TABLET PO SCH (09:13)
[2019-05-14] MEDS: SERTRALINE 50 MG TABLET PO SCH (09:13)
[2019-05-14] MEDS: METOPROLOL TARTRATE 25 MG TABLET PO SCH ×2 (09:13→21:08)
[2019-05-14] MEDS: CHLORTHALIDONE 25 MG TABLET PO SCH (09:13)
[2019-05-14] MEDS: FUROSEMIDE 20 MG TABLET PO SCH ×2 (09:13→17:04)
[2019-05-14] MEDS: cefTRIAXone 1,000 MG in SYRINGE 1 EACH IV SCH (17:04)
[2019-05-14] MEDS: ENOXAPARIN 40 MG/0.4 ML SYRINGE SUBCUT SCH (21:08)
[2019-05-15] MEDS: ALBUTEROL/IPRATROPIUM 3 ML NEB RESP TX SCH ×4 (01:44→19:31)
[2019-05-15] MEDS: METOCLOPRAMIDE 10 MG/2 ML VIAL IV SCH ×2 (05:55→14:45)
[2019-05-15 07:05] LABS: Calcium 9.4 MG/DL (8.5-10.1); Osmolality,Calculated 275.5 MOS/KG (273-304)
[2019-05-15] MEDS ORDERED: BISACODYL 10 MG SUPP RECTAL ONE (07:39)
[2019-05-15] MEDS: INSULIN LISPRO 100 UNIT/ML SUBCUT SCH ×4 (08:32→23:30)
[2019-05-15] MEDS: risperiDONE 1 MG TABLET PO SCH ×2 (08:33→16:19)
[2019-05-15] MEDS: PANTOPRAZOLE 40 MG TABLET PO SCH (08:33)
[2019-05-15] MEDS: POTASSIUM CHLORIDE 20 MEQ TABLET PO SCH ×6 (08:33→20:38)
[2019-05-15] MEDS: METOPROLOL TARTRATE 25 MG TABLET PO SCH ×2 (08:33→20:38)
[2019-05-15] MEDS: FUROSEMIDE 20 MG TABLET PO SCH ×2 (08:33→16:21)
[2019-05-15] MEDS: ASPIRIN CHEW 81 MG TABLET PO SCH (08:34)
[2019-05-15] MEDS: SERTRALINE 50 MG TABLET PO SCH (08:34)
[2019-05-15] MEDS: CLOPIDOGREL 75 MG TABLET PO SCH (08:34)
[2019-05-15] MEDS: predniSONE 20 MG TABLET PO SCH (08:34)
[2019-05-15] MEDS: CHLORTHALIDONE 25 MG TABLET PO SCH (08:34)
[2019-05-15] MEDS: THEOPHYLLINE ER (24 HR) 400 MG CAPSULE PO SCH (08:34)
[2019-05-15] MEDS: DIVALPROEX 250 MG TABLET PO SCH ×2 (08:34→16:20)
[2019-05-15] MEDS: INSULIN GLARGINE 100 UNIT/ML SUBCUT SCH ×2 (08:35→16:20)
[2019-05-15] MEDS: LINACLOTIDE 145 MCG CAPSULE PO SCH (08:55)
[2019-05-15] MEDS ORDERED: SODIUM PHOSPHATE ENEMA 133 ML BOTTLE RECTAL ONE (10:37)
[2019-05-15] MEDS ORDERED: METOCLOPRAMIDE 10 MG/2 ML VIAL ONE (14:43)
[2019-05-15] MEDS: METOCLOPRAMIDE 10 MG/10 ML UDCUP PO SCH ×2 (16:19→20:38)
[2019-05-15] MEDS: cefTRIAXone 1,000 MG in SYRINGE 1 EACH IV SCH (16:20)
[2019-05-15] MEDS: ENOXAPARIN 40 MG/0.4 ML SYRINGE SUBCUT SCH (20:38)
[2019-05-16] MEDS: ALBUTEROL/IPRATROPIUM 3 ML NEB RESP TX SCH ×3 (00:58→13:00)
[2019-05-16 05:42] LABS: Calcium 9.3 MG/DL (8.5-10.1); Osmolality,Calculated 280.5 MOS/KG (273-304)
[2019-05-16] MEDS: POTASSIUM CHLORIDE 20 MEQ TABLET PO SCH ×3 (06:31→10:44)
[2019-05-16] MEDS ORDERED: SODIUM CHLORIDE 0.9% 1,000 ML IV SCH (07:30)
[2019-05-16] MEDS: METOCLOPRAMIDE 10 MG/10 ML UDCUP PO SCH ×2 (10:42→12:37)
[2019-05-16] MEDS: INSULIN GLARGINE 100 UNIT/ML SUBCUT SCH ×2 (10:42→11:06)
[2019-05-16] MEDS: LINACLOTIDE 145 MCG CAPSULE PO SCH (10:42)
[2019-05-16] MEDS: INSULIN LISPRO 100 UNIT/ML SUBCUT SCH ×3 (10:43→12:37)
[2019-05-16] MEDS: FUROSEMIDE 20 MG TABLET PO SCH (10:43)
[2019-05-16] MEDS: PANTOPRAZOLE 40 MG TABLET PO SCH (10:44)
[2019-05-16] MEDS: METOPROLOL TARTRATE 25 MG TABLET PO SCH (10:44)
[2019-05-16] MEDS: ASPIRIN CHEW 81 MG TABLET PO SCH (10:44)
[2019-05-16] MEDS: THEOPHYLLINE ER (24 HR) 400 MG CAPSULE PO SCH (10:44)
[2019-05-16] MEDS: CLOPIDOGREL 75 MG TABLET PO SCH (10:44)
[2019-05-16] MEDS: risperiDONE 1 MG TABLET PO SCH (10:44)
[2019-05-16] MEDS: SERTRALINE 50 MG TABLET PO SCH (10:44)
[2019-05-16] MEDS: DIVALPROEX 250 MG TABLET PO SCH (10:45)
[2019-05-16] MEDS: CHLORTHALIDONE 25 MG TABLET PO SCH (10:45)
[2019-05-16] MEDS: predniSONE 20 MG TABLET PO SCH (10:46)
[2019-05-16 15:12] VITALS: BP 142/84
== END 2019-05-16 12:45 | disposition home or self-care (01) | DRG 189 ==
LOC: EDBD → EDUNIT# → N.ED 14:04 → SUATTDRO 17:10 → N.EDINP 17:10 → N.5E 17:36 → N.CC 20:02 → N.5E 05-11 00:01
PROVIDERS: ADMIT Family Medicine; ATTEND Family Medicine

== ENCOUNTER 2019-07-12 11:04 | Inpatient (IN) ==
[2019-07-12] MEDS ORDERED: SODIUM CHLORIDE 0.9% 1,000 ML IV STA (11:33)
[2019-07-12 12:18] LABS: INR 1.1; PT Patient Result 11.6 SECS (9.8-11.9); Partial Thromboplastin Time 28.8 SECS (23.9-33.8)
[2019-07-12 12:29] LABS: Albumin 2.1 G/DL (3.4-5.0); Bilirubin,Total 0.7 MG/DL (0.2-1.0); Total Protein 7.9 G/DL (6.4-8.3)
[2019-07-12 12:38] LABS: Basophils # 0.1 10*3/uL (0.0-0.2); Basophils % 0.6 % (0.0-0.8); Eosinophils # 0.1 10*3/uL (0.0-0.87); Eosinophils % 0.8 % (0.00-10.9); Hematocrit 35.2 VOL% (42.0-52.0); Hemoglobin 10.1 GM/DL (14.0-18.0); Immature Granulocytes % 0.4 %; Immature Granulocytes Absolute 0.04 #; Lymphocytes # 1.2 10*3/uL (1.4-4.0); Lymphocytes % 11.3 % (21.2-54.2); Mean Corpuscular HGB Conc 28.7 GM/DL (32-36); Mean Corpuscular Volume 85.9 FL (87-102); Mean Platelet Volume 10.4 FL (9.6-12.0); Monocytes % 11.2 % (1.7-12.7); Neutrophils % 75.7 % (38.7-73.9); Platelet Count 324 T/CUMM (130-400); Red Cell Distribution Width 14.8 % (9.3-17.3); White Blood Count 10.5 T/CUMM (4-12)
[2019-07-12 12:50] LABS: Anisocytosis Slight; Platelet Estimate Normal
[2019-07-12] MEDS ORDERED: traMADol 50 MG TABLET PO PRN (14:16)
[2019-07-12] MEDS ORDERED: ONDANSETRON 4 MG/2 ML VIAL IV PRN (14:16)
[2019-07-12] MEDS ORDERED: hydrALAZINE 20 MG/1 ML VIAL IV PRN (14:16)
[2019-07-12] MEDS ORDERED: DOCUSATE SODIUM 100 MG CAPSULE PO PRN (14:16)
[2019-07-12] MEDS ORDERED: ACETAMINOPHEN 500 MG TABLET PO PRN (14:16)
[2019-07-12] MEDS ORDERED: diphenhydrAMINE CAP 25 MG CAPSULE PO PRN (14:16)
[2019-07-12] MEDS ORDERED: GLUCAGON 1 MG VIAL IM PRN (14:16)
[2019-07-12] MEDS ORDERED: DEXTROSE 10% 250 ML BAG IV PRN (14:16)
[2019-07-12 14:37] LABS: ABG Base Excess 3.8 MMOL/L (-2.5-2.5); ABG HCO3 27.8 MMOL/L (20-26); ABG Oxygen Saturation 96.4 % (95-100); ABG PCO2 62.9 MM HG (35-48); ABG PH 7.309 (7.35-7.45); ABG PO2 87.6 MM HG (80-95); ABG TCO2 29.2 MMOL/L (23-27)
[2019-07-12] MEDS: SODIUM CHLORIDE 0.9% 1,000 ML IV SCH (15:45)
[2019-07-12] MEDS: PIPERACILLIN/TAZOBACTAM 3,375 MG in SODIUM CHLORIDE 0.9% 100 ML IV SCH (15:55)
[2019-07-12] MEDS: FUROSEMIDE 20 MG TABLET PO SCH (16:10)
[2019-07-12 16:29] LABS: Apearance,Urine CLOUDY (Clear); Bacteria,Urine Many /HPF (Few); Bilirubin,Urine Negative (Negative); Blood, Urine Moderate mg/dL (Negative); Glucose,Urine (UA) Negative (Negative); Hyaline Casts,Urine 22 /LPF (0-3); Ketones,Urine Negative (Negative); Mucus,Urine Occasional /LPF (Occasional); Nitrite,Urine Negative (Negative); Protein,Urine 30 MG/DL; RBC,Urine 16 /HPF (0-4); Squamous Epithelial Cell,Urine Occasional /HPF (0-10); Urine Color Amber (Yellow); Urine Specific Gravity 1.013 (1.001-1.035); Urine Urobilinogen < 2.0 EU/DL (0.2-1.0); WBC,Urine 181 /HPF (0-6)
[2019-07-12 16:37] LABS: Barbiturates Screen,Urine Negative (Negative); Benzodiazepines Screen,Urine Negative (Negative); Cannabinoid Screen,Urine Negative (Negative); Opiate Screen,Urine Negative (Negative); Phencyclidine Screen,Urine Negative (Negative)
[2019-07-12 16:45] LABS: Calcium 6.5 MG/DL (8.5-10.1); Risk Ratio 4.19; Thyroid Stimulating Hormone 0.217 uIU/ml (0.358-3.74); VLDL CHOLESTEROL 22.4 MG/DL
[2019-07-12] MEDS ORDERED: risperiDONE 3 MG TABLET PO SCH (17:00)
[2019-07-12] MEDS: POTASSIUM CHLORIDE RIDER 10 MEQ in PREMIX 1 EACH IV PRN ×2 (17:15→18:20)
[2019-07-12] MEDS: METOCLOPRAMIDE 10 MG/10 ML UDCUP PO SCH ×2 (17:56→22:56)
[2019-07-12] MEDS: GABAPENTIN 600 MG TABLET PO SCH (17:57)
[2019-07-12] MEDS: DIVALPROEX 250 MG TABLET PO SCH (17:57)
[2019-07-12] MEDS: INSULIN REGULAR 100 UNIT/ML SUBCUT SCH ×2 (19:11→20:47)
[2019-07-12] MEDS: POTASSIUM CHLORIDE 20 MEQ TABLET PO SCH (22:55)
[2019-07-12] MEDS: SIMVASTATIN 10 MG TABLET PO SCH (22:55)
[2019-07-12] MEDS: ENOXAPARIN 40 MG/0.4 ML SYRINGE SUBCUT SCH (22:55)
[2019-07-13] MEDS: PIPERACILLIN/TAZOBACTAM 3,375 MG in SODIUM CHLORIDE 0.9% 100 ML IV SCH ×4 (00:07→22:50)
[2019-07-13] MEDS: SODIUM CHLORIDE 0.9% 1,000 ML IV SCH ×4 (00:14→22:50)
[2019-07-13 07:55] LABS: Basophils # 0.1 10*3/uL (0.0-0.2); Basophils % 0.5 % (0.0-0.8); Eosinophils # 0.2 10*3/uL (0.0-0.87); Eosinophils % 1.7 % (0.00-10.9); Hematocrit 33.1 VOL% (42.0-52.0); Immature Granulocytes % 0.4 %; Immature Granulocytes Absolute 0.04 #; Lymphocytes # 0.8 10*3/uL (1.4-4.0); Lymphocytes % 7.4 % (21.2-54.2); Mean Platelet Volume 10.7 FL (9.6-12.0); Monocytes % 8.2 % (1.7-12.7); Neutrophils % 81.8 % (38.7-73.9); Platelet Count 306 T/CUMM (130-400); Red Blood Count 3.85 MC/CUMM (3.8-5.5); Red Cell Distribution Width 14.9 % (9.3-17.3); White Blood Count 10.7 T/CUMM (4-12)
[2019-07-13 07:56] LABS: Hemoglobin 9.6 GM/DL (14.0-18.0)
[2019-07-13 08:00] LABS: Hypochromasia 1+; Platelet Estimate Adequate
[2019-07-13 08:01] LABS: Microcytosis Slight
[2019-07-13] MEDS: LINACLOTIDE 145 MCG CAPSULE PO SCH (08:37)
[2019-07-13] MEDS: PANTOPRAZOLE 40 MG TABLET PO SCH (08:38)
[2019-07-13] MEDS: DIVALPROEX 250 MG TABLET PO SCH ×2 (08:38→17:06)
[2019-07-13] MEDS: FUROSEMIDE 20 MG TABLET PO SCH ×2 (08:38→16:30)
[2019-07-13] MEDS: THEOPHYLLINE ER (24 HR) 400 MG CAPSULE PO SCH (08:38)
[2019-07-13] MEDS: METOCLOPRAMIDE 10 MG/10 ML UDCUP PO SCH ×4 (08:38→20:50)
[2019-07-13] MEDS: POTASSIUM CHLORIDE 20 MEQ TABLET PO SCH ×2 (08:38→20:50)
[2019-07-13] MEDS: SERTRALINE 50 MG TABLET PO SCH (08:41)
[2019-07-13] MEDS: ASPIRIN CHEW 81 MG TABLET PO SCH (08:42)
[2019-07-13] MEDS: METOPROLOL TARTRATE 25 MG TABLET PO SCH ×2 (08:42→21:04)
[2019-07-13] MEDS: CLOPIDOGREL 75 MG TABLET PO SCH (08:42)
[2019-07-13] MEDS: CHLORTHALIDONE 25 MG TABLET PO SCH (08:42)
[2019-07-13] MEDS: INSULIN REGULAR 100 UNIT/ML SUBCUT SCH ×4 (09:46→20:50)
[2019-07-13 09:56] LABS: Calcium 8.5 MG/DL (8.5-10.1); Osmolality,Calculated 300.8 MOS/KG (273-304)
[2019-07-13] MEDS: POTASSIUM CHLORIDE RIDER 10 MEQ in PREMIX 1 EACH IV PRN ×3 (10:29→14:13)
[2019-07-13] MEDS: GABAPENTIN 600 MG TABLET PO SCH (17:06)
[2019-07-13] MEDS: ENOXAPARIN 40 MG/0.4 ML SYRINGE SUBCUT SCH (20:50)
[2019-07-13] MEDS: SIMVASTATIN 10 MG TABLET PO SCH (20:50)
[2019-07-14 04:54] LABS: Calcium 8.7 MG/DL (8.5-10.1); Osmolality,Calculated 294.4 MOS/KG (273-304)
[2019-07-14 05:26] LABS: Basophils % 0.5 % (0.0-0.8); Eosinophils # 0.5 10*3/uL (0.0-0.87); Eosinophils % 7.9 % (0.00-10.9); Hematocrit 32.7 VOL% (42.0-52.0); Hemoglobin 9.5 GM/DL (14.0-18.0); Immature Granulocytes % 0.3 %; Immature Granulocytes Absolute 0.02 #; Lymphocytes # 0.9 10*3/uL (1.4-4.0); Lymphocytes % 13.6 % (21.2-54.2); Mean Corpuscular HGB Conc 29.1 GM/DL (32-36); Mean Corpuscular Volume 84.5 FL (87-102); Mean Platelet Volume 11.2 FL (9.6-12.0); Monocytes % 11.1 % (1.7-12.7); Neutrophils % 66.6 % (38.7-73.9); Platelet Count 299 T/CUMM (130-400); Red Blood Count 3.87 MC/CUMM (3.8-5.5); Red Cell Distribution Width 14.7 % (9.3-17.3); White Blood Count 6.2 T/CUMM (4-12)
[2019-07-14 05:33] LABS: Hypochromasia 1+; Microcytosis Slight; Platelet Estimate Adequate
[2019-07-14] MEDS: POTASSIUM CHLORIDE RIDER 10 MEQ in PREMIX 1 EACH IV PRN (06:15)
[2019-07-14] MEDS: SODIUM CHLORIDE 0.9% 1,000 ML IV SCH ×2 (06:34→18:28)
[2019-07-14] MEDS: FUROSEMIDE 20 MG TABLET PO SCH ×2 (08:00→17:37)
[2019-07-14] MEDS: PIPERACILLIN/TAZOBACTAM 3,375 MG in SODIUM CHLORIDE 0.9% 100 ML IV SCH ×3 (08:17→22:23)
[2019-07-14 08:18] LABS: Free T4 (Free Thyroxine) 0.96 NG/DL (0.76-1.46)
[2019-07-14] MEDS: LINACLOTIDE 145 MCG CAPSULE PO SCH (08:30)
[2019-07-14] MEDS: METOCLOPRAMIDE 10 MG/10 ML UDCUP PO SCH ×4 (08:30→20:11)
[2019-07-14] MEDS: INSULIN REGULAR 100 UNIT/ML SUBCUT SCH ×4 (08:30→20:55)
[2019-07-14] MEDS: METOPROLOL TARTRATE 25 MG TABLET PO SCH ×2 (09:00→20:11)
[2019-07-14] MEDS: CHLORTHALIDONE 25 MG TABLET PO SCH (09:00)
[2019-07-14] MEDS: PANTOPRAZOLE 40 MG TABLET PO SCH (09:00)
[2019-07-14] MEDS: POTASSIUM CHLORIDE 20 MEQ TABLET PO SCH ×5 (09:00→22:23)
[2019-07-14] MEDS: SERTRALINE 50 MG TABLET PO SCH (09:00)
[2019-07-14] MEDS: THEOPHYLLINE ER (24 HR) 400 MG CAPSULE PO SCH (09:00)
[2019-07-14] MEDS: CLOPIDOGREL 75 MG TABLET PO SCH (09:00)
[2019-07-14] MEDS: DIVALPROEX 250 MG TABLET PO SCH ×3 (09:00→20:11)
[2019-07-14] MEDS: ASPIRIN CHEW 81 MG TABLET PO SCH (09:00)
[2019-07-14] MEDS: GABAPENTIN 600 MG TABLET PO SCH (18:00)
[2019-07-14] MEDS: SIMVASTATIN 10 MG TABLET PO SCH (20:11)
[2019-07-14] MEDS: ENOXAPARIN 40 MG/0.4 ML SYRINGE SUBCUT SCH (20:11)
[2019-07-15] MEDS: POTASSIUM CHLORIDE 20 MEQ TABLET PO SCH ×3 (02:00→20:17)
[2019-07-15] MEDS: SODIUM CHLORIDE 0.9% 1,000 ML IV SCH ×3 (03:20→23:10)
[2019-07-15] MEDS: PIPERACILLIN/TAZOBACTAM 3,375 MG in SODIUM CHLORIDE 0.9% 100 ML IV SCH (06:05)
[2019-07-15 06:23] LABS: Calcium 8.4 MG/DL (8.5-10.1); Osmolality,Calculated 294.1 MOS/KG (273-304)
[2019-07-15 06:29] LABS: Basophils % 0.7 % (0.0-0.8); Eosinophils # 0.4 10*3/uL (0.0-0.87); Eosinophils % 6.7 % (0.00-10.9); Hematocrit 34.1 VOL% (42.0-52.0); Immature Granulocytes % 0.3 %; Immature Granulocytes Absolute 0.02 #; Lymphocytes % 15.6 % (21.2-54.2); Mean Corpuscular HGB Conc 28.7 GM/DL (32-36); Mean Corpuscular Volume 84.6 FL (87-102); Monocytes % 9.5 % (1.7-12.7); Neutrophils % 67.2 % (38.7-73.9); Platelet Count 326 T/CUMM (130-400); Red Blood Count 4.03 MC/CUMM (3.8-5.5); Red Cell Distribution Width 14.4 % (9.3-17.3); White Blood Count 6.1 T/CUMM (4-12)
[2019-07-15 06:30] LABS: Hemoglobin 9.8 GM/DL (14.0-18.0)
[2019-07-15 06:42] LABS: Anisocytosis 1+; Platelet Estimate Normal
[2019-07-15 06:43] LABS: Hypochromasia Slight
[2019-07-15] MEDS: INSULIN REGULAR 100 UNIT/ML SUBCUT SCH ×4 (09:46→20:17)
[2019-07-15] MEDS: LINACLOTIDE 145 MCG CAPSULE PO SCH (09:47)
[2019-07-15] MEDS: ASPIRIN CHEW 81 MG TABLET PO SCH (09:47)
[2019-07-15] MEDS: SERTRALINE 50 MG TABLET PO SCH (09:47)
[2019-07-15] MEDS: METOPROLOL TARTRATE 25 MG TABLET PO SCH ×2 (09:47→20:17)
[2019-07-15] MEDS: PANTOPRAZOLE 40 MG TABLET PO SCH (09:47)
[2019-07-15] MEDS: CHLORTHALIDONE 25 MG TABLET PO SCH (09:47)
[2019-07-15] MEDS: METOCLOPRAMIDE 10 MG/10 ML UDCUP PO SCH ×4 (09:47→20:17)
[2019-07-15] MEDS: CLOPIDOGREL 75 MG TABLET PO SCH (09:47)
[2019-07-15] MEDS: FUROSEMIDE 20 MG TABLET PO SCH ×2 (09:47→17:13)
[2019-07-15] MEDS: THEOPHYLLINE ER (24 HR) 400 MG CAPSULE PO SCH (09:47)
[2019-07-15] MEDS: DIVALPROEX 250 MG TABLET PO SCH ×2 (09:49→20:17)
[2019-07-15] MEDS: GABAPENTIN 600 MG TABLET PO SCH (17:14)
[2019-07-15] MEDS: CEFUROXIME 500 MG TABLET PO SCH (17:14)
[2019-07-15] MEDS: ENOXAPARIN 40 MG/0.4 ML SYRINGE SUBCUT SCH (20:17)
[2019-07-15] MEDS: SIMVASTATIN 10 MG TABLET PO SCH (20:17)
[2019-07-16] MEDS: LINACLOTIDE 145 MCG CAPSULE PO SCH (09:34)
[2019-07-16] MEDS: METOCLOPRAMIDE 10 MG/10 ML UDCUP PO SCH ×2 (09:34→13:20)
[2019-07-16] MEDS: CEFUROXIME 500 MG TABLET PO SCH (09:34)
[2019-07-16] MEDS: INSULIN REGULAR 100 UNIT/ML SUBCUT SCH ×2 (09:34→13:20)
[2019-07-16] MEDS: METOPROLOL TARTRATE 25 MG TABLET PO SCH (09:35)
[2019-07-16] MEDS: POTASSIUM CHLORIDE 20 MEQ TABLET PO SCH (09:35)
[2019-07-16] MEDS: DIVALPROEX 250 MG TABLET PO SCH (09:35)
[2019-07-16] MEDS: CLOPIDOGREL 75 MG TABLET PO SCH (09:35)
[2019-07-16] MEDS: SODIUM CHLORIDE 0.9% 1,000 ML IV SCH (09:35)
[2019-07-16] MEDS: THEOPHYLLINE ER (24 HR) 400 MG CAPSULE PO SCH (09:35)
[2019-07-16] MEDS: CHLORTHALIDONE 25 MG TABLET PO SCH (09:35)
[2019-07-16] MEDS: FUROSEMIDE 20 MG TABLET PO SCH (09:35)
[2019-07-16] MEDS: ASPIRIN CHEW 81 MG TABLET PO SCH (09:35)
[2019-07-16] MEDS: SERTRALINE 50 MG TABLET PO SCH (09:35)
[2019-07-16] MEDS: PANTOPRAZOLE 40 MG TABLET PO SCH (10:41)
[2019-07-16 11:25] LABS: Calcium 8.3 MG/DL (8.5-10.1); Osmolality,Calculated 288.4 MOS/KG (273-304)
[2019-07-16 11:34] LABS: Basophils % 0.6 % (0.0-0.8); Eosinophils # 0.3 10*3/uL (0.0-0.87); Eosinophils % 4.9 % (0.00-10.9); Hematocrit 36.5 VOL% (42.0-52.0); Immature Granulocytes % 0.6 %; Immature Granulocytes Absolute 0.04 #; Lymphocytes # 0.9 10*3/uL (1.4-4.0); Lymphocytes % 13.7 % (21.2-54.2); Mean Corpuscular HGB Conc 28.8 GM/DL (32-36); Mean Corpuscular Volume 84.9 FL (87-102); Mean Platelet Volume 10.9 FL (9.6-12.0); Monocytes % 7.4 % (1.7-12.7); NRBC # 0.02 10*3/uL; Neutrophils % 72.8 % (38.7-73.9); Platelet Count 350 T/CUMM (130-400); Red Cell Distribution Width 14.7 % (9.3-17.3); White Blood Count 6.7 T/CUMM (4-12)
[2019-07-16 11:37] LABS: Hemoglobin 10.5 GM/DL (14.0-18.0)
[2019-07-16] MEDS ORDERED: POTASSIUM CHLORIDE 20 MEQ TABLET PO ONE ×2 (11:41→14:00)
[2019-07-16 11:46] LABS: Hypochromasia 1+; Microcytosis 1+; Platelet Estimate Adequate
[2019-07-16 13:29] VITALS: BP 124/70
== END 2019-07-16 16:35 | DRG 683 ==
LOC: EDUNIT# → EDBD → N.ED 11:04 → N.EDINP 13:55 → N.2E 20:45
PROVIDERS: ADMIT Family Medicine; ATTEND Family Medicine

== ENCOUNTER 2019-08-26 09:52 | Inpatient (IN) ==
[2019-08-26] MEDS ORDERED: SODIUM CHLORIDE 0.9% 1,000 ML IV STA (10:06)
[2019-08-26] MEDS ORDERED: SODIUM CHLORIDE 0.9% 500 ML IV STA (10:52)
[2019-08-26 10:55] LABS: Apearance,Urine CLOUDY (Clear); Bacteria,Urine Many /HPF (Few); Bilirubin,Urine Negative (Negative); Blood, Urine Moderate mg/dL (Negative); Glucose,Urine (UA) Negative (Negative); Hyaline Casts,Urine 349 /LPF (0-3); Ketones,Urine Negative (Negative); Mucus,Urine Moderate /LPF (Occasional); Nitrite,Urine Negative (Negative); Protein,Urine Negative; RBC,Urine 177 /HPF (0-4); Squamous Epithelial Cell,Urine Occasional /HPF (0-10); Urine Color Yellow (Yellow); Urine Specific Gravity 1.012 (1.001-1.035); Urine Urobilinogen < 2.0 EU/DL (0.2-1.0); WBC,Urine 1819 /HPF (0-6)
[2019-08-26 11:20] LABS: Basophils % 0.5 % (0.0-0.8); Eosinophils % 0.1 % (0.00-10.9); Hematocrit 40.2 VOL% (42.0-52.0); Immature Granulocytes Absolute 0.08 #; Lymphocytes # 0.5 10*3/uL (1.4-4.0); Lymphocytes % 5.7 % (21.2-54.2); Mean Corpuscular HGB Conc 29.9 GM/DL (32-36); Mean Corpuscular Volume 81.2 FL (87-102); Mean Platelet Volume 10.7 FL (9.6-12.0); Neutrophils % 89.7 % (38.7-73.9); Platelet Count 562 T/CUMM (130-400); Red Blood Count 4.95 MC/CUMM (3.8-5.5); White Blood Count 8.4 T/CUMM (4-12)
[2019-08-26 11:28] LABS: Theophylline 9.8 UG/ML (10-20)
[2019-08-26 11:30] LABS: Platelet Estimate Increased
[2019-08-26 11:31] LABS: Anisocytosis Slight
[2019-08-26 11:54] LABS: Albumin 2.4 G/DL (3.4-5.0); Bilirubin,Total 0.8 MG/DL (0.2-1.0); Calcium 8.6 MG/DL (8.5-10.1); Total Protein 7.9 G/DL (6.4-8.3)
[2019-08-26] MEDS ORDERED: cefTRIAXone 1,000 MG in SODIUM CHLORIDE 0.9% 100 ML IV STA (11:56)
[2019-08-26 12:03] LABS: Osmolality,Calculated 339.1 MOS/KG (273-304)
[2019-08-26] MEDS ORDERED: ONDANSETRON 4 MG/2 ML VIAL IV PRN (12:09)
[2019-08-26] MEDS ORDERED: DEXTROSE 50% 25 GM/50 ML VIAL IV PRN (12:09)
[2019-08-26] MEDS ORDERED: GLUCAGON 1 MG VIAL IM PRN (12:09)
[2019-08-26 12:25] LABS: Ferritin 460.6 ng/ml (26-388)
[2019-08-26] MEDS: SODIUM CHLORIDE 0.9% 1,000 ML IV SCH ×2 (12:57→18:23)
[2019-08-26] MEDS: POTASSIUM CHLORIDE RIDER 10 MEQ in PREMIX 1 EACH IV SCH ×2 (16:11→18:23)
[2019-08-26] MEDS: HEPARIN 5,000 UNIT/1 ML VIAL SUBCUT SCH (16:12)
[2019-08-26] MEDS ORDERED: METOPROLOL TARTRATE 25 MG TABLET PO SCH (17:00)
[2019-08-26] MEDS: INSULIN REGULAR 100 UNIT/ML SUBCUT SCH (17:36)
[2019-08-26] MEDS: DIVALPROEX 250 MG TABLET PO SCH (20:25)
[2019-08-26] MEDS: SIMVASTATIN 10 MG TABLET PO SCH (20:25)
[2019-08-26] MEDS: DOCUSATE/SENNA 50-8.6 MG TABLET PO SCH (20:25)
[2019-08-26] MEDS ORDERED: GABAPENTIN 300 MG CAPSULE PO SCH (21:00)
[2019-08-27] MEDS: INSULIN REGULAR 100 UNIT/ML SUBCUT SCH ×4 (01:13→18:19)
[2019-08-27] MEDS: HEPARIN 5,000 UNIT/1 ML VIAL SUBCUT SCH ×3 (01:14→16:00)
[2019-08-27] MEDS: SODIUM CHLORIDE 0.9% 1,000 ML IV SCH (01:14)
[2019-08-27 05:23] LABS: Calcium 9.1 MG/DL (8.5-10.1); Osmolality,Calculated 341.9 MOS/KG (273-304)
[2019-08-27 05:25] LABS: Basophils % 0.3 % (0.0-0.8); Eosinophils % 0.1 % (0.00-10.9); Hematocrit 41.7 VOL% (42.0-52.0); Hemoglobin 12.3 GM/DL (14.0-18.0); Immature Granulocytes Absolute 0.11 #; Lymphocytes # 0.5 10*3/uL (1.4-4.0); Lymphocytes % 4.7 % (21.2-54.2); Mean Corpuscular HGB Conc 29.5 GM/DL (32-36); Mean Corpuscular Volume 82.2 FL (87-102); Mean Platelet Volume 10.1 FL (9.6-12.0); Monocytes % 3.2 % (1.7-12.7); Neutrophils % 90.7 % (38.7-73.9); Platelet Count 564 T/CUMM (130-400); Red Blood Count 5.07 MC/CUMM (3.8-5.5); Red Cell Distribution Width 17.4 % (9.3-17.3); White Blood Count 10.6 T/CUMM (4-12)
[2019-08-27] MEDS: POTASSIUM CHLORIDE RIDER 10 MEQ in PREMIX 1 EACH IV SCH ×4 (05:53→11:04)
[2019-08-27 06:35] LABS: Eosinophils 1 % (0-10); Lymphocytes 4 % (20-55); Microcytosis 2+; Platelet Estimate Increased; Segmented Neutrophils 93 % (50-85); Total Cells Counted 100
[2019-08-27 06:38] LABS: Hypochromasia Slight
[2019-08-27 06:39] LABS: Polychromasia Slight
[2019-08-27 07:44] LABS: Hepatitis B Core IgM Quant 0.16 Index; Hepatitis B Surface Ag Quant < 0.10 Index; Hepatitis B Surface Ag Result Negative (Negative); Hepatitis C Virus Ab Quant 0.08 Index; Hepatitis C Virus Ab Result Negative (Negative)
[2019-08-27] MEDS: CLOPIDOGREL 75 MG TABLET PO SCH (08:32)
[2019-08-27] MEDS: DIVALPROEX 250 MG TABLET PO SCH (08:32)
[2019-08-27] MEDS: ASPIRIN CHEW 81 MG TABLET PO SCH (08:32)
[2019-08-27] MEDS: cefTRIAXone 1,000 MG in SYRINGE 1 EACH IV SCH (08:32)
[2019-08-27] MEDS: METOPROLOL TARTRATE 5 MG/5 ML VIAL IV SCH ×3 (08:38→20:52)
[2019-08-27] MEDS ORDERED: POTASSIUM CHLORIDE INJ 10 MEQ in SODIUM CHLORIDE 0.45% 1,000 ML IV SCH (09:00)
[2019-08-27] MEDS: ACETAMINOPHEN 650 MG SUPP RECTAL PRN (12:43)
[2019-08-27] MEDS: POTASSIUM CHLORIDE INJ 40 MEQ in DEXTROSE 5% 1,000 ML IV SCH (15:59)
[2019-08-27] MEDS: DOCUSATE/SENNA 50-8.6 MG TABLET PO SCH (21:20)
[2019-08-27] MEDS: SIMVASTATIN 10 MG TABLET PO SCH (21:21)
[2019-08-28] MEDS: HEPARIN 5,000 UNIT/1 ML VIAL SUBCUT SCH ×3 (01:04→17:09)
[2019-08-28] MEDS: INSULIN REGULAR 100 UNIT/ML SUBCUT SCH ×4 (01:11→17:39)
[2019-08-28] MEDS: POTASSIUM CHLORIDE INJ 40 MEQ in DEXTROSE 5% 1,000 ML IV SCH ×2 (03:22→14:10)
[2019-08-28] MEDS: METOPROLOL TARTRATE 5 MG/5 ML VIAL IV SCH ×4 (03:22→20:24)
[2019-08-28] MEDS: cefTRIAXone 1,000 MG in SYRINGE 1 EACH IV SCH (08:47)
[2019-08-28 09:22] LABS: Basophils % 0.5 % (0.0-0.8); Eosinophils # 0.1 10*3/uL (0.0-0.87); Eosinophils % 1.4 % (0.00-10.9); Hematocrit 37.7 VOL% (42.0-52.0); Hemoglobin 10.9 GM/DL (14.0-18.0); Immature Granulocytes % 1.6 %; Immature Granulocytes Absolute 0.14 #; Lymphocytes # 0.8 10*3/uL (1.4-4.0); Lymphocytes % 9.3 % (21.2-54.2); Mean Corpuscular HGB Conc 28.9 GM/DL (32-36); Mean Corpuscular Volume 83.6 FL (87-102); Mean Platelet Volume 11.2 FL (9.6-12.0); Monocytes % 2.3 % (1.7-12.7); NRBC # 0.02 10*3/uL; Neutrophils % 84.9 % (38.7-73.9); Platelet Count 556 T/CUMM (130-400); Red Blood Count 4.51 MC/CUMM (3.8-5.5); White Blood Count 8.6 T/CUMM (4-12)
[2019-08-28 09:31] LABS: Osmolality,Calculated 349.7 MOS/KG (273-304)
[2019-08-28] MEDS: CLOPIDOGREL 75 MG TABLET PO SCH (09:37)
[2019-08-28] MEDS: ASPIRIN CHEW 81 MG TABLET PO SCH (09:37)
[2019-08-28] MEDS: POTASSIUM CHLORIDE RIDER 10 MEQ in PREMIX 1 EACH IV PRN ×6 (09:52→17:40)
[2019-08-28] MEDS: DOCUSATE/SENNA 50-8.6 MG TABLET PO SCH (20:38)
[2019-08-28] MEDS: SIMVASTATIN 10 MG TABLET PO SCH (20:38)
[2019-08-29] MEDS: POTASSIUM CHLORIDE INJ 40 MEQ in DEXTROSE 5% 1,000 ML IV SCH ×2 (01:10→09:22)
[2019-08-29] MEDS: INSULIN REGULAR 100 UNIT/ML SUBCUT SCH ×4 (01:43→17:28)
[2019-08-29] MEDS: HEPARIN 5,000 UNIT/1 ML VIAL SUBCUT SCH ×3 (02:20→17:29)
[2019-08-29] MEDS: ACETAMINOPHEN 650 MG SUPP RECTAL PRN ×2 (02:50→17:27)
[2019-08-29] MEDS: METOPROLOL TARTRATE 5 MG/5 ML VIAL IV SCH ×4 (03:00→20:01)
[2019-08-29 05:59] LABS: Calcium 8.7 MG/DL (8.5-10.1); Osmolality,Calculated 342.9 MOS/KG (273-304)
[2019-08-29 06:18] LABS: Basophils % 0.4 % (0.0-0.8); Eosinophils # 0.2 10*3/uL (0.0-0.87); Eosinophils % 2.5 % (0.00-10.9); Hematocrit 34.6 VOL% (42.0-52.0); Hemoglobin 10.1 GM/DL (14.0-18.0); Immature Granulocytes % 1.5 %; Immature Granulocytes Absolute 0.12 #; Lymphocytes # 0.7 10*3/uL (1.4-4.0); Lymphocytes % 8.2 % (21.2-54.2); Mean Corpuscular HGB Conc 29.2 GM/DL (32-36); Mean Platelet Volume 10.9 FL (9.6-12.0); Monocytes % 2.9 % (1.7-12.7); Neutrophils % 84.5 % (38.7-73.9); Platelet Count 508 T/CUMM (130-400); Red Blood Count 4.12 MC/CUMM (3.8-5.5); Red Cell Distribution Width 18.1 % (9.3-17.3); White Blood Count 7.9 T/CUMM (4-12)
[2019-08-29] MEDS: cefTRIAXone 1,000 MG in SYRINGE 1 EACH IV SCH (09:10)
[2019-08-29] MEDS: ASPIRIN CHEW 81 MG TABLET PO SCH (09:22)
[2019-08-29] MEDS: CLOPIDOGREL 75 MG TABLET PO SCH (09:22)
[2019-08-29] MEDS: POTASSIUM CHLORIDE RIDER 10 MEQ in PREMIX 1 EACH IV PRN ×4 (09:23→14:10)
[2019-08-29] MEDS: SIMVASTATIN 10 MG TABLET PO SCH (20:02)
[2019-08-29] MEDS: DOCUSATE/SENNA 50-8.6 MG TABLET PO SCH (20:02)
[2019-08-30] MEDS: INSULIN REGULAR 100 UNIT/ML SUBCUT SCH ×4 (00:16→17:26)
[2019-08-30] MEDS: HEPARIN 5,000 UNIT/1 ML VIAL SUBCUT SCH ×3 (02:56→17:19)
[2019-08-30] MEDS: METOPROLOL TARTRATE 5 MG/5 ML VIAL IV SCH ×4 (04:41→21:01)
[2019-08-30] MEDS: POTASSIUM CHLORIDE INJ 40 MEQ in DEXTROSE 5% 1,000 ML IV SCH ×2 (04:43→15:06)
[2019-08-30 08:16] LABS: Calcium 9.1 MG/DL (8.5-10.1); Osmolality,Calculated 334.1 MOS/KG (273-304)
[2019-08-30 08:18] LABS: Basophils % 0.3 % (0.0-0.8); Eosinophils # 0.1 10*3/uL (0.0-0.87); Eosinophils % 1.1 % (0.00-10.9); Hematocrit 36.9 VOL% (42.0-52.0); Immature Granulocytes % 2.1 %; Immature Granulocytes Absolute 0.21 #; Lymphocytes # 0.6 10*3/uL (1.4-4.0); Lymphocytes % 6.3 % (21.2-54.2); Mean Corpuscular HGB Conc 29.8 GM/DL (32-36); Mean Corpuscular Volume 80.7 FL (87-102); Mean Platelet Volume 11.3 FL (9.6-12.0); Monocytes % 1.6 % (1.7-12.7); NRBC # 0.02 10*3/uL; Neutrophils % 88.6 % (38.7-73.9); Platelet Count 503 T/CUMM (130-400); Red Blood Count 4.57 MC/CUMM (3.8-5.5); Red Cell Distribution Width 18.3 % (9.3-17.3); White Blood Count 10.1 T/CUMM (4-12)
[2019-08-30] MEDS: ASPIRIN CHEW 81 MG TABLET PO SCH (08:24)
[2019-08-30] MEDS: cefTRIAXone 1,000 MG in SYRINGE 1 EACH IV SCH (08:26)
[2019-08-30] MEDS: CLOPIDOGREL 75 MG TABLET PO SCH (08:26)
[2019-08-30] MEDS: INSULIN GLARGINE 100 UNIT/ML SUBCUT SCH ×2 (11:58→21:04)
[2019-08-30] MEDS: ACETAMINOPHEN 650 MG SUPP RECTAL PRN (11:59)
[2019-08-30] MEDS: POTASSIUM CHLORIDE RIDER 10 MEQ in PREMIX 1 EACH IV PRN ×2 (11:59→15:07)
[2019-08-30] MEDS ORDERED: REMDESIVIR 200 MG in SODIUM CHLORIDE 0.9% 210 ML IV ONE (12:00)
[2019-08-30] MEDS: SIMVASTATIN 10 MG TABLET PO SCH (21:01)
[2019-08-30] MEDS: DOCUSATE/SENNA 50-8.6 MG TABLET PO SCH (21:01)
[2019-08-30 23:56] LABS: ABG Base Excess -6.2 MMOL/L (-2.5-2.5); ABG HCO3 19.1 MMOL/L (20-26); ABG PCO2 28.1 MM HG (35-48); ABG PH 7.398 (7.35-7.45); ABG PO2 46.5 MM HG (80-95); ABG TCO2 15.4 MMOL/L (23-27); Allen Test Positive
[2019-08-31] MEDS: INSULIN REGULAR 100 UNIT/ML SUBCUT SCH ×4 (00:27→18:18)
[2019-08-31] MEDS: HEPARIN 5,000 UNIT/1 ML VIAL SUBCUT SCH ×3 (00:44→18:18)
[2019-08-31] MEDS: POTASSIUM CHLORIDE INJ 40 MEQ in DEXTROSE 5% 1,000 ML IV SCH ×5 (02:30→20:39)
[2019-08-31 03:00] LABS: ABG Base Excess -6.4 MMOL/L (-2.5-2.5); ABG Oxygen Saturation 86.4 % (95-100); ABG PCO2 28.6 MM HG (35-48); ABG PH 7.386 (7.35-7.45); ABG PO2 50.8 MM HG (80-95); ABG TCO2 14.6 MMOL/L (23-27); Allen Test Positive; Pt O2 Delivery Device Other
[2019-08-31] MEDS: METOPROLOL TARTRATE 5 MG/5 ML VIAL IV SCH ×4 (03:37→20:31)
[2019-08-31 04:44] LABS: ABG Base Excess -6.6 MMOL/L (-2.5-2.5); ABG HCO3 18.9 MMOL/L (20-26); ABG Oxygen Saturation 93.7 % (95-100); ABG PCO2 30.5 MM HG (35-48); ABG PH 7.371 (7.35-7.45); ABG TCO2 16.1 MMOL/L (23-27); Allen Test Positive; Pt O2 Delivery Device Other
[2019-08-31 05:42] LABS: Basophils % 0.2 % (0.0-0.8); Eosinophils # 0.1 10*3/uL (0.0-0.87); Eosinophils % 1.1 % (0.00-10.9); Hematocrit 35.4 VOL% (42.0-52.0); Hemoglobin 10.5 GM/DL (14.0-18.0); Immature Granulocytes % 1.9 %; Immature Granulocytes Absolute 0.23 #; Lymphocytes # 0.5 10*3/uL (1.4-4.0); Lymphocytes % 4.3 % (21.2-54.2); Mean Corpuscular HGB Conc 29.7 GM/DL (32-36); Mean Corpuscular Volume 80.1 FL (87-102); Mean Platelet Volume 11.7 FL (9.6-12.0); Monocytes % 1.7 % (1.7-12.7); NRBC # 0.02 10*3/uL; Neutrophils % 90.8 % (38.7-73.9); Platelet Count 471 T/CUMM (130-400); Red Blood Count 4.42 MC/CUMM (3.8-5.5); Red Cell Distribution Width 18.6 % (9.3-17.3); White Blood Count 12.2 T/CUMM (4-12)
[2019-08-31 06:10] LABS: Alanine Aminotransferase 11 U/L (16-61); Albumin 1.8 G/DL (3.4-5.0); Alkaline Phosphatase 77 U/L (45-117); Aspartate Amino Transferase 24 U/L (0-37); Bilirubin,Total < 0.39 MG/DL (0.2-1.0); Blood Urea Nitrogen 63 MG/DL (7-18); Calcium 9.1 MG/DL (8.5-10.1); Estimated Glom Filtration Rate 47 ML/MIN; Glucose 227 MG/DL (74-106); Total Protein 7.2 G/DL (6.4-8.3)
[2019-08-31 06:16] LABS: Band Neutrophils 1 % (0-10); Eosinophils 1 % (0-10); Hypochromasia 1+; Lymphocytes 4 % (20-55); Microcytosis 1+; Segmented Neutrophils 92 % (50-85); Total Cells Counted 100
[2019-08-31 06:17] LABS: Ovalocytes Slight; Tear Drop Cells Slight
[2019-08-31] MEDS: CLOPIDOGREL 75 MG TABLET PO SCH (09:00)
[2019-08-31] MEDS: ASPIRIN CHEW 81 MG TABLET PO SCH (09:00)
[2019-08-31] MEDS: INSULIN GLARGINE 100 UNIT/ML SUBCUT SCH ×2 (09:00→20:32)
[2019-08-31] MEDS: cefTRIAXone 1,000 MG in SYRINGE 1 EACH IV SCH (09:01)
[2019-08-31 10:27] LABS: Apearance,Urine CLOUDY (Clear); Bilirubin,Urine Negative (Negative); Blood, Urine Moderate mg/dL (Negative); Glucose,Urine (UA) 50 mg/dL (Negative); Ketones,Urine Negative (Negative); Mucus,Urine Occasional /LPF (Occasional); Nitrite,Urine Negative (Negative); Protein,Urine 30 MG/DL; RBC,Urine 64 /HPF (0-4); Urine Color Yellow (Yellow); Urine Specific Gravity 1.015 (1.001-1.035); Urine Urobilinogen < 2.0 EU/DL (0.2-1.0); WBC,Urine 12 /HPF (0-6)
[2019-08-31] MEDS: DEXAMETHASONE 4 MG/1 ML VIAL IV SCH (12:10)
[2019-08-31] MEDS: REMDESIVIR 100 MG in SODIUM CHLORIDE 0.9% 230 ML IV SCH (12:11)
[2019-08-31] MEDS: PIPERACILLIN/TAZOBACTAM 3,375 MG in SODIUM CHLORIDE 0.9% 100 ML IV SCH ×2 (14:30→23:55)
[2019-08-31] MEDS: LINEZOLID INJ 600 MG in PREMIX 1 EACH IV SCH (20:31)
[2019-08-31] MEDS: DOCUSATE/SENNA 50-8.6 MG TABLET PO SCH (20:32)
[2019-08-31] MEDS: SIMVASTATIN 10 MG TABLET PO SCH (20:32)
[2019-09-01] MEDS: INSULIN REGULAR 100 UNIT/ML SUBCUT SCH ×4 (00:11→17:18)
[2019-09-01] MEDS: HEPARIN 5,000 UNIT/1 ML VIAL SUBCUT SCH ×3 (00:12→17:18)
[2019-09-01] MEDS: METOPROLOL TARTRATE 5 MG/5 ML VIAL IV SCH ×4 (03:50→20:14)
[2019-09-01] MEDS: POTASSIUM CHLORIDE INJ 40 MEQ in DEXTROSE 5% 1,000 ML IV SCH (04:07)
[2019-09-01 05:07] LABS: Basophils % 0.1 % (0.0-0.8); Hematocrit 31.6 VOL% (42.0-52.0); Hemoglobin 9.6 GM/DL (14.0-18.0); Immature Granulocytes % 1.4 %; Immature Granulocytes Absolute 0.16 #; Lymphocytes # 0.6 10*3/uL (1.4-4.0); Lymphocytes % 4.9 % (21.2-54.2); Mean Corpuscular HGB Conc 30.4 GM/DL (32-36); Mean Corpuscular Volume 79.2 FL (87-102); Mean Platelet Volume 10.6 FL (9.6-12.0); Monocytes % 1.8 % (1.7-12.7); NRBC # 0.03 10*3/uL; Neutrophils % 91.8 % (38.7-73.9); Platelet Count 402 T/CUMM (130-400); Red Blood Count 3.99 MC/CUMM (3.8-5.5); Red Cell Distribution Width 19.3 % (9.3-17.3); White Blood Count 11.4 T/CUMM (4-12)
[2019-09-01 05:34] LABS: Albumin 1.7 G/DL (3.4-5.0); Bilirubin,Total 0.7 MG/DL (0.2-1.0); Burr Cells Slight; Calcium 8.7 MG/DL (8.5-10.1); Hypochromasia 1+; Lymphocytes 3 % (20-55); Microcytosis Slight; Osmolality,Calculated 317.7 MOS/KG (273-304); Ovalocytes Slight; Platelet Estimate Adequate; Segmented Neutrophils 95 % (50-85); Total Cells Counted 100; Total Protein 6.8 G/DL (6.4-8.3)
[2019-09-01] MEDS: PIPERACILLIN/TAZOBACTAM 3,375 MG in SODIUM CHLORIDE 0.9% 100 ML IV SCH ×2 (06:11→14:25)
[2019-09-01] MEDS: CLOPIDOGREL 75 MG TABLET PO SCH (08:48)
[2019-09-01] MEDS: ASPIRIN CHEW 81 MG TABLET PO SCH (08:48)
[2019-09-01] MEDS: INSULIN GLARGINE 100 UNIT/ML SUBCUT SCH ×2 (08:49→22:02)
[2019-09-01] MEDS: DEXAMETHASONE 4 MG/1 ML VIAL IV SCH (08:50)
[2019-09-01] MEDS: LINEZOLID INJ 600 MG in PREMIX 1 EACH IV SCH ×2 (10:01→19:53)
[2019-09-01] MEDS: REMDESIVIR 100 MG in SODIUM CHLORIDE 0.9% 230 ML IV SCH (12:45)
[2019-09-01] MEDS: SIMVASTATIN 10 MG TABLET PO SCH (22:01)
[2019-09-01] MEDS: DOCUSATE/SENNA 50-8.6 MG TABLET PO SCH (22:01)
[2019-09-02] MEDS: PIPERACILLIN/TAZOBACTAM 3,375 MG in SODIUM CHLORIDE 0.9% 100 ML IV SCH ×3 (00:39→14:24)
[2019-09-02] MEDS: POTASSIUM CHLORIDE INJ 40 MEQ in DEXTROSE 5% 1,000 ML IV SCH ×5 (00:40→20:40)
[2019-09-02] MEDS: INSULIN REGULAR 100 UNIT/ML SUBCUT SCH ×4 (01:13→18:13)
[2019-09-02] MEDS: HEPARIN 5,000 UNIT/1 ML VIAL SUBCUT SCH ×3 (01:13→17:01)
[2019-09-02] MEDS: METOPROLOL TARTRATE 5 MG/5 ML VIAL IV SCH ×2 (03:30→08:55)
[2019-09-02 05:06] LABS: Basophils % 0.2 % (0.0-0.8); Eosinophils # 0.1 10*3/uL (0.0-0.87); Eosinophils % 0.3 % (0.00-10.9); Hematocrit 34.3 VOL% (42.0-52.0); Hemoglobin 10.7 GM/DL (14.0-18.0); Immature Granulocytes % 3.8 %; Immature Granulocytes Absolute 0.67 #; Lymphocytes # 0.9 10*3/uL (1.4-4.0); Lymphocytes % 5.1 % (21.2-54.2); Mean Corpuscular HGB Conc 31.2 GM/DL (32-36); Mean Corpuscular Volume 77.3 FL (87-102); Mean Platelet Volume 10.9 FL (9.6-12.0); Monocytes % 2.6 % (1.7-12.7); NRBC # 0.05 10*3/uL; Platelet Count 536 T/CUMM (130-400); Red Blood Count 4.44 MC/CUMM (3.8-5.5); Red Cell Distribution Width 19.6 % (9.3-17.3); White Blood Count 17.7 T/CUMM (4-12)
[2019-09-02 05:29] LABS: Alanine Aminotransferase 16 U/L (16-61); Albumin 1.9 G/DL (3.4-5.0); Alkaline Phosphatase 112 U/L (45-117); Aspartate Amino Transferase 16 U/L (0-37); Bilirubin,Total < 0.39 MG/DL (0.2-1.0); Blood Urea Nitrogen 56 MG/DL (7-18); Estimated Glom Filtration Rate 47 ML/MIN; Glucose 116 MG/DL (74-106); Total Protein 6.9 G/DL (6.4-8.3)
[2019-09-02 05:42] LABS: Band Neutrophils 1 % (0-10); Burr Cells Slight; Elliptocytes Few; Eosinophils 1 % (0-10); Hypochromasia 1+; Lymphocytes 3 % (20-55); Microcytosis Slight; Platelet Estimate Increased; Segmented Neutrophils 90 % (50-85); Total Cells Counted 100
[2019-09-02] MEDS: DEXAMETHASONE 4 MG/1 ML VIAL IV SCH (08:53)
[2019-09-02] MEDS: INSULIN GLARGINE 100 UNIT/ML SUBCUT SCH ×2 (08:55→23:14)
[2019-09-02] MEDS: CLOPIDOGREL 75 MG TABLET PO SCH (08:55)
[2019-09-02] MEDS: ASPIRIN CHEW 81 MG TABLET PO SCH (09:16)
[2019-09-02] MEDS: LINEZOLID INJ 600 MG in PREMIX 1 EACH IV SCH (09:23)
[2019-09-02] MEDS: REMDESIVIR 100 MG in SODIUM CHLORIDE 0.9% 230 ML IV SCH (12:36)
[2019-09-02] MEDS: METOPROLOL TARTRATE 25 MG TABLET PO SCH ×2 (14:24→23:14)
[2019-09-02] MEDS: DOCUSATE/SENNA 50-8.6 MG TABLET PO SCH (23:15)
[2019-09-02] MEDS: SIMVASTATIN 10 MG TABLET PO SCH (23:15)
[2019-09-03] MEDS: PIPERACILLIN/TAZOBACTAM 3,375 MG in SODIUM CHLORIDE 0.9% 100 ML IV SCH ×3 (00:04→16:21)
[2019-09-03] MEDS: HEPARIN 5,000 UNIT/1 ML VIAL SUBCUT SCH (00:41)
[2019-09-03] MEDS: INSULIN REGULAR 100 UNIT/ML SUBCUT SCH ×4 (00:47→17:34)
[2019-09-03] MEDS: POTASSIUM CHLORIDE INJ 40 MEQ in DEXTROSE 5% 1,000 ML IV SCH ×3 (04:45→21:42)
[2019-09-03 07:01] LABS: Basophils % 0.3 % (0.0-0.8); Bilirubin,Total 1.2 MG/DL (0.2-1.0); Calcium 8.9 MG/DL (8.5-10.1); Eosinophils # 0.1 10*3/uL (0.0-0.87); Eosinophils % 0.5 % (0.00-10.9); Hematocrit 40.1 VOL% (42.0-52.0); Hemoglobin 11.9 GM/DL (14.0-18.0); Immature Granulocytes % 2.8 %; Immature Granulocytes Absolute 0.41 #; Lymphocytes # 0.9 10*3/uL (1.4-4.0); Lymphocytes % 6.3 % (21.2-54.2); Mean Corpuscular HGB Conc 29.7 GM/DL (32-36); Mean Corpuscular Volume 79.7 FL (87-102); Mean Platelet Volume 10.3 FL (9.6-12.0); Monocytes % 3.2 % (1.7-12.7); NRBC # 0.02 10*3/uL; Neutrophils % 86.9 % (38.7-73.9); Platelet Count 541 T/CUMM (130-400); Red Blood Count 5.03 MC/CUMM (3.8-5.5); Red Cell Distribution Width 20.6 % (9.3-17.3); Total Protein 7.3 G/DL (6.4-8.3); White Blood Count 14.8 T/CUMM (4-12)
[2019-09-03] MEDS: CLOPIDOGREL 75 MG TABLET PO SCH (08:31)
[2019-09-03] MEDS: ENOXAPARIN 40 MG/0.4 ML SYRINGE SUBCUT SCH ×2 (08:31→20:53)
[2019-09-03] MEDS: METOPROLOL TARTRATE 25 MG TABLET PO SCH ×2 (08:31→20:54)
[2019-09-03] MEDS: DEXAMETHASONE 4 MG/1 ML VIAL IV SCH (08:31)
[2019-09-03] MEDS: ASPIRIN CHEW 81 MG TABLET PO SCH (08:31)
[2019-09-03] MEDS: INSULIN GLARGINE 100 UNIT/ML SUBCUT SCH ×2 (08:31→20:53)
[2019-09-03] MEDS: REMDESIVIR 100 MG in SODIUM CHLORIDE 0.9% 230 ML IV SCH (12:17)
[2019-09-03] MEDS: SIMVASTATIN 10 MG TABLET PO SCH (20:53)
[2019-09-03] MEDS: DOCUSATE/SENNA 50-8.6 MG TABLET PO SCH (20:54)
[2019-09-04] MEDS: INSULIN REGULAR 100 UNIT/ML SUBCUT SCH ×5 (00:13→23:13)
[2019-09-04] MEDS: PIPERACILLIN/TAZOBACTAM 3,375 MG in SODIUM CHLORIDE 0.9% 100 ML IV SCH ×3 (00:13→18:58)
[2019-09-04] MEDS: ENOXAPARIN 40 MG/0.4 ML SYRINGE SUBCUT SCH ×2 (08:52→20:47)
[2019-09-04] MEDS: INSULIN GLARGINE 100 UNIT/ML SUBCUT SCH ×2 (08:53→20:45)
[2019-09-04] MEDS: MULTIVITAMIN (CENTRUM) TABLET PO SCH (08:54)
[2019-09-04] MEDS: CLOPIDOGREL 75 MG TABLET PO SCH (08:54)
[2019-09-04] MEDS: ASPIRIN CHEW 81 MG TABLET PO SCH (08:54)
[2019-09-04] MEDS: DEXAMETHASONE 4 MG/1 ML VIAL IV SCH (10:47)
[2019-09-04] MEDS: METOPROLOL TARTRATE 25 MG TABLET PO SCH ×2 (12:45→20:47)
[2019-09-04] MEDS: POTASSIUM CHLORIDE INJ 40 MEQ in DEXTROSE 5% 1,000 ML IV SCH (20:46)
[2019-09-04] MEDS: DOCUSATE/SENNA 50-8.6 MG TABLET PO SCH (20:47)
[2019-09-04] MEDS: SIMVASTATIN 10 MG TABLET PO SCH (20:47)
[2019-09-05] MEDS: PIPERACILLIN/TAZOBACTAM 3,375 MG in SODIUM CHLORIDE 0.9% 100 ML IV SCH ×3 (00:40→16:55)
[2019-09-05] MEDS: INSULIN REGULAR 100 UNIT/ML SUBCUT SCH ×3 (05:45→18:03)
[2019-09-05] MEDS: CLOPIDOGREL 75 MG TABLET PO SCH (08:32)
[2019-09-05] MEDS: DEXAMETHASONE 4 MG/1 ML VIAL IV SCH (08:32)
[2019-09-05] MEDS: MULTIVITAMIN (CENTRUM) TABLET PO SCH (08:32)
[2019-09-05] MEDS: ENOXAPARIN 40 MG/0.4 ML SYRINGE SUBCUT SCH ×2 (08:32→20:38)
[2019-09-05] MEDS: ASPIRIN CHEW 81 MG TABLET PO SCH (08:33)
[2019-09-05] MEDS: METOPROLOL TARTRATE 25 MG TABLET PO SCH ×2 (08:33→20:28)
[2019-09-05] MEDS: INSULIN GLARGINE 100 UNIT/ML SUBCUT SCH ×2 (12:54→20:29)
[2019-09-05] MEDS: ACETAMINOPHEN 325 MG TABLET PO PRN ×2 (15:39→20:38)
[2019-09-05] MEDS: DOCUSATE/SENNA 50-8.6 MG TABLET PO SCH (20:28)
[2019-09-05] MEDS: SIMVASTATIN 10 MG TABLET PO SCH (20:38)
[2019-09-06] MEDS: INSULIN REGULAR 100 UNIT/ML SUBCUT SCH ×4 (00:14→17:09)
[2019-09-06] MEDS: PIPERACILLIN/TAZOBACTAM 3,375 MG in SODIUM CHLORIDE 0.9% 100 ML IV SCH (00:14)
[2019-09-06 05:28] LABS: Basophils % 0.2 % (0.0-0.8); Eosinophils % 0.1 % (0.00-10.9); Hematocrit 29.1 VOL% (42.0-52.0); Hemoglobin 9.1 GM/DL (14.0-18.0); Immature Granulocytes % 1.2 %; Lymphocytes # 0.9 10*3/uL (1.4-4.0); Lymphocytes % 5.2 % (21.2-54.2); Mean Corpuscular HGB Conc 31.3 GM/DL (32-36); Mean Corpuscular Volume 76.6 FL (87-102); Mean Platelet Volume 10.2 FL (9.6-12.0); Monocytes % 2.8 % (1.7-12.7); Neutrophils % 90.5 % (38.7-73.9); Platelet Count 475 T/CUMM (130-400); Red Cell Distribution Width 20.5 % (9.3-17.3); White Blood Count 16.2 T/CUMM (4-12)
[2019-09-06 05:48] LABS: Calcium 8.1 MG/DL (8.5-10.1); Osmolality,Calculated 299.7 MOS/KG (273-304)
[2019-09-06] MEDS: INSULIN GLARGINE 100 UNIT/ML SUBCUT SCH ×2 (09:15→17:08)
[2019-09-06] MEDS: CLOPIDOGREL 75 MG TABLET PO SCH (10:05)
[2019-09-06] MEDS: MULTIVITAMIN (CENTRUM) TABLET PO SCH (10:05)
[2019-09-06] MEDS: METOPROLOL TARTRATE 25 MG TABLET PO SCH ×2 (10:05→20:54)
[2019-09-06] MEDS: ASPIRIN CHEW 81 MG TABLET PO SCH (10:05)
[2019-09-06] MEDS: ENOXAPARIN 40 MG/0.4 ML SYRINGE SUBCUT SCH ×2 (10:05→20:55)
[2019-09-06] MEDS: POTASSIUM CHLORIDE RIDER 10 MEQ in PREMIX 1 EACH IV PRN ×5 (10:06→23:45)
[2019-09-06] MEDS: SIMVASTATIN 10 MG TABLET PO SCH (20:54)
[2019-09-06] MEDS: DOCUSATE/SENNA 50-8.6 MG TABLET PO SCH (20:54)
[2019-09-07] MEDS: INSULIN REGULAR 100 UNIT/ML SUBCUT SCH ×3 (00:24→12:31)
[2019-09-07 06:25] LABS: Basophils # 0.1 10*3/uL (0.0-0.2); Basophils % 0.4 % (0.0-0.8); Eosinophils # 0.2 10*3/uL (0.0-0.87); Eosinophils % 1.1 % (0.00-10.9); Hematocrit 34.1 VOL% (42.0-52.0); Hemoglobin 10.2 GM/DL (14.0-18.0); Immature Granulocytes Absolute 0.28 #; Lymphocytes # 0.9 10*3/uL (1.4-4.0); Lymphocytes % 6.3 % (21.2-54.2); Mean Corpuscular HGB Conc 29.9 GM/DL (32-36); Mean Corpuscular Volume 79.7 FL (87-102); Mean Platelet Volume 9.6 FL (9.6-12.0); Monocytes % 3.7 % (1.7-12.7); Neutrophils % 86.5 % (38.7-73.9); Platelet Count 564 T/CUMM (130-400); Red Blood Count 4.28 MC/CUMM (3.8-5.5); Red Cell Distribution Width 21.3 % (9.3-17.3); White Blood Count 14.3 T/CUMM (4-12)
[2019-09-07 06:44] LABS: Calcium 8.5 MG/DL (8.5-10.1); Osmolality,Calculated 293.4 MOS/KG (273-304)
[2019-09-07 07:35] VITALS: BP 131/64
[2019-09-07] MEDS ORDERED: POTASSIUM CHLORIDE 20 MEQ TABLET PO PRN (08:59)
[2019-09-07] MEDS: INSULIN GLARGINE 100 UNIT/ML SUBCUT SCH (09:29)
[2019-09-07] MEDS: METOPROLOL TARTRATE 25 MG TABLET PO SCH (09:29)
[2019-09-07] MEDS: CLOPIDOGREL 75 MG TABLET PO SCH (09:29)
[2019-09-07] MEDS: ENOXAPARIN 40 MG/0.4 ML SYRINGE SUBCUT SCH (09:29)
[2019-09-07] MEDS: MULTIVITAMIN (CENTRUM) TABLET PO SCH (09:29)
[2019-09-07] MEDS: ASPIRIN CHEW 81 MG TABLET PO SCH (09:29)
[2019-09-07] MEDS ORDERED: POTASSIUM CHLORIDE 20 MEQ TABLET PO ONE (12:00)
== END 2019-09-07 15:12 | DRG 871 ==
LOC: EDUNIT# → N.ED 09:52 → N.EDINP 12:09 → SUATTDRO 12:09 → N.2E 13:02
PROVIDERS: ADMIT Internal Medicine; ATTEND Internal Medicine